=== PATIENT | male | born 1955 | race Caucasian/White ===

== ENCOUNTER 2017-06-19 10:42 | Emergency (ER) | payer BC, SELFPAY ==
[2017-06-19 11:02] VITALS: BP 142/93; PULSE 71; RESP 20; TEMP 36.9; O2SAT 98; BMI 19.6
--- NOTE | 2017-06-19 11:33 | HMH.EDUTC ---
[facility] [place] Clinical Impression: Encounter to obtain excuse from work Low back strain Qualifiers: Encounter type: initial encounter Qualified Code(s): S39.012A - Strain of muscle, fascia and tendon of lower back, initial encounter Fall due to ice or snow Qualifiers: Encounter type: initial encounter Qualified Code(s): W00.9XXA - Unspecified fall due to ice and snow, initial encounter Disposition: Home, Self-Care Condition on Discharge: Good Instructions: DI for Back Strain or Sprain Additional Instructions: * Ibuprofen every 6 hours with meal as needed for pain/inflammation. * No additional anti-inflammatories like motrin, aleve, advil with the above amount of ibuprofen. You CAN still take Tylenol every 4 hours as needed if you need something more for pain. * Ice x15-20 mins 3-4 times a day for first 48 hours after the initial injury followed by moist heat x15-20 mins 3-4 times a day to affected area * Keep this area active. No movement leads to more stiffness. However, take it easy too and avoid heavy lifting, pushing, pulling. If not ready to return to work on Monday, you need to follow up with primary care for further evaluation and extended work excuse. Referrals: Ivet Dill APRN [Nurse Practitioner] - (Immediately for new or worsening symptoms or no noticeable improvement over the next 3-4 days.) Forms: Work/School Release Time of Disposition: 11:41 Medical Decision Making Vital Signs: 06/19/17 11:02 06/19/17 11:43 Temperature 98.4 F 98.4 F Temperature Source Temporal Artery Scan Pulse Rate 71 Pulse Rate [Right Brachial] 71 Respiratory Rate 20 20 Blood Pressure 142/93 Blood Pressure [Right Arm] 142/93 Blood Pressure Mean [Right Arm] 109 Blood Pressure Source [Right Arm] Automatic Cuff Blood Pressure Position [Right Arm] Sitting 02 Sat by Pulse Oximetry 98 Oxygen Delivery Method Room Air - Prakash Inquiry Pt receiving controlled substance: No [facility] [place] - General Stated complaint: AO 06/19/17 fell hurt back Time Seen by Provider: 06/19/17 11:33 Mode of Arrival: Ambulatory Source of Information: Patient Limitations: No Limitations Description of Symptoms (Recalled from Triage Doc. by RN): c/o back pain after falling on ice this am HEENT Symptoms (Recalled from RN notes): No Resp Symptoms (Recalled from RN notes): No Skin Symptoms (Recalled from RN notes): No MS Symptoms (Recalled from RN notes): Yes (back pain) Functional Status (Recalled from RN notes): n/a - History of Present Illness Provider Complaint: c/o need for work excuse. Slid on ice this morning at home in driveway. Landed on buttock. Mild left sided low back pain. Hx of low back pain in the past. Thinks he just strained it again. I know with a few days of ice, rest, ibuprofen it will be fine . Denies pain or injury elsewhere. Declines xrays to rule out further injury. - Related Data Allergies Allergy/AdvReac Type Severity Reaction Status Date / Time Unable to Assess Allergy Verified 05/30/17 12:32 - Worker's Comp Is this a Worker's Comp case?: No [facility] History I have reviewed the patient's past medical history: Yes Medical History: Reports:: Anxiety Denies:: Cancer, Diabetes Mellitus Type 1, Diabetes Mellitus Type 2, Hypertension, MRSA Other Medical History: Reports: Hypothyroidism, Other (insomnia) Other Surgeries: Yes: Other (knee surgery) Amputation: No Fractures: No - *Social History Smoking Status: Current every day smoker Tobacco Type: cigarettes Alcohol Intake: never - Psychiatric History Expresses thoughts of harming self/others: None Suicide Plan Description: No Plan ROS Obtained: Yes Systems reviewed as appropriate & no additional complaints - Constitutional Constitutional: Denies weakness - Cardiovascular Cardiovascular: Denies chest pain - Respiratory Respiratory: No dyspnea - Gastrointestinal Gastrointestingal: Denies: abdominal pain, other (stool incontinence) -
--- NOTE | 2017-06-19 11:39 | ED_ITS ---
[facility] [place] Clinical Impression: Encounter to obtain excuse from work Low back strain Qualifiers: Encounter type: initial encounter Qualified Code(s): S39.012A - Strain of muscle, fascia and tendon of lower back, initial encounter Fall due to ice or snow Qualifiers: Encounter type: initial encounter Qualified Code(s): W00.9XXA - Unspecified fall due to ice and snow, initial encounter Disposition: Home, Self-Care Condition on Discharge: Good Instructions: DI for Back Strain or Sprain Additional Instructions: * Ibuprofen every 6 hours with meal as needed for pain/inflammation. * No additional anti-inflammatories like motrin, aleve, advil with the above amount of ibuprofen. You CAN still take Tylenol every 4 hours as needed if you need something more for pain. * Ice x15-20 mins 3-4 times a day for first 48 hours after the initial injury followed by moist heat x15-20 mins 3-4 times a day to affected area * Keep this area active. No movement leads to more stiffness. However, take it easy too and avoid heavy lifting, pushing, pulling. If not ready to return to work on Monday, you need to follow up with primary care for further evaluation and extended work excuse. Referrals: Ivet Dill APRN [Nurse Practitioner] - (Immediately for new or worsening symptoms or no noticeable improvement over the next 3-4 days.) Forms: Work/School Release Time of Disposition: 11:41 Medical Decision Making Vital Signs: 06/19/17 11:02 06/19/17 11:43 Temperature 98.4 F 98.4 F Temperature Source Temporal Artery Scan Pulse Rate 71 Pulse Rate [Right Brachial] 71 Respiratory Rate 20 20 Blood Pressure 142/93 Blood Pressure [Right Arm] 142/93 Blood Pressure Mean [Right Arm] 109 Blood Pressure Source [Right Arm] Automatic Cuff Blood Pressure Position [Right Arm] Sitting 02 Sat by Pulse Oximetry 98 Oxygen Delivery Method Room Air - Prakash Inquiry Pt receiving controlled substance: No [facility] [place] - General Stated complaint: AO 06/19/17 fell hurt back Time Seen by Provider: 06/19/17 11:33 Mode of Arrival: Ambulatory Source of Information: Patient Limitations: No Limitations Description of Symptoms (Recalled from Triage Doc. by RN): c/o back pain after falling on ice this am HEENT Symptoms (Recalled from RN notes): No Resp Symptoms (Recalled from RN notes): No Skin Symptoms (Recalled from RN notes): No MS Symptoms (Recalled from RN notes): Yes (back pain) Functional Status (Recalled from RN notes): n/a - History of Present Illness Provider Complaint: c/o need for work excuse. Slid on ice this morning at home in driveway. Landed on buttock. Mild left sided low back pain. Hx of low back pain in the past. Thinks he just strained it again. I know with a few days of ice, rest, ibuprofen it will be fine . Denies pain or injury elsewhere. Declines xrays to rule out further injury. - Related Data Allergies Allergy/AdvReac Type Severity Reaction Status Date / Time Unable to Assess Allergy Verified 05/30/17 12:32 - Worker's Comp Is this a Worker's Comp case?: No [facility] History I have reviewed the patient's past medical history: Yes Medical History: Reports:: Anxiety Denies:: Cancer, Diabetes Mellitus Type 1, Diabetes Mellitus Type 2, Hypertension, MRSA Other Medical History: Reports: Hypothyroidism, Other (insomnia) Other Surgeries: Yes: Other (knee surgery) Amputation: No Fractures: No
[2017-06-19 11:43] VITALS: BP 142/93; PULSE 71; RESP 20; TEMP 36.9; O2SAT 98
== END 2017-06-19 11:44 | disposition home or self-care (01) ==
PROVIDERS: Emergency Provider Nurse Practitioner Family; Family Provider Internal Medicine Adolescent Medicine; PCP Internal Medicine Adolescent Medicine
DX: S39.012A Strain of muscle, fascia and tendon of lower back, initial encounter (principal); W00.9XXA Unspecified fall due to ice and snow, initial encounter; F17.210 Nicotine dependence, cigarettes, uncomplicated; F41.9 Anxiety disorder, unspecified; E03.9 Hypothyroidism, unspecified; G47.00 Insomnia, unspecified
CPT/HCPCS: 99202

== ENCOUNTER → 2017-12-03 08:42 | Outpatient (CLI) | payer MEDICAID, SELFPAY ==
[2017-12-03 09:08] LABS: Basophils % 0.5 % (0.1-2.0); Eosinophils # 0.2 K/mm3 (0.0-0.4); Eosinophils % 2.9 % (0.1-12.0); Hematocrit 44.2 % (42.0-52.0); Hemoglobin 14.3 g/dL (14.1-18.0); Lymphocytes # 2.1 K/mm3 (0.7-4.5); Lymphocytes % 33.4 K/mm3 (10-50); Mean Corpuscular HGB Conc 32.4 g/dL (31.8-35.4); Mean Corpuscular Hemoglobin 31.2 pg (27.0-31.2); Mean Corpuscular Volume 96.2 fl (80-94); Mean Platelet Volume 8.4 fl (7.4-10.4); Monocytes # 0.6 K/mm3 (0.1-1.0); Monocytes % 8.8 % (1.7-9.3); Neutrophils # 3.5 K/mm3 (1.8-7.8); Neutrophils % 54.4 % (37.0-80.0); Platelet Count 235 K/mm3 (142-424); Red Cell Distribution Width 13.3 % (11.5-17.5); White Blood Count 6.4 K/mm3 (4.8-10.8)
[2017-12-03 12:19] LABS: Alanine Aminotransferase 23 U/L (12-78); Albumin Level 3.6 gm/dL (3.4-5.0); Albumin/Globulin Ratio 1.3 (1.1-1.8); Alkaline Phosphatase 82 U/L (46-116); Aspartate Amino Transferase 14 U/L (15-37); Bilirubin,Total 0.7 mg/dL (0.2-1.0); Blood Urea Nitrogen 10 mg/dL (7-18); Calcium 9.1 mg/dL (8.5-10.1); Carbon Dioxide 32 mmol/L (21.0-32.0); Chloride 109 mmol/L (98-107); Creatinine,Serum 1.13 mg/dL (0.70-1.30); Estimated Glomerular Filt Rate 66 ml/min (>60); Ferritin 99 ng/mL (8-388); Free T4 (Free Thyroxine) 1.29 ng/dl (0.76-1.46); GFR (African American) 80 ML/MIN (>60); Globulin 2.8 gm/dl (1.3-3.2); Glucose 91 mg/dL (74-106); Magnesium 2.1 mg/dL (1.4-2.2); Sodium 145 mmol/L (136-145); Thyroid Stimulating Hormone 1.46 uIU/ml (0.358-3.740); Total Protein,Serum 6.4 gm/dL (6.4-8.2)
[2017-12-06 16:48] LABS: Vitamin B12 <150 pg/mL (232-1245); Vitamin D 25 Hydroxy 28.2 ng/mL (30.0-100.0)
[2017-12-06 17:11] LABS: Antinuclear Antibodies, IFA Negative (.)
== END ==
PROVIDERS: PCP Family Medicine; Visit Provider Nurse Practitioner Family
DX: R53.83 Other fatigue (principal); E03.9 Hypothyroidism, unspecified; G44.52 New daily persistent headache (NDPH); M62.838 Other muscle spasm
CPT/HCPCS: 36415; 80053; 82607; 82652; 82728; 83735; 84439; 84443; 85025; 86038

== ENCOUNTER → 2019-03-07 14:21 | Outpatient (CLI) | payer OTHER, SELFPAY ==
--- NOTE | 2019-03-07 14:27 | XR_ITS ---
PROCEDURE: XR ANKLE RT MIN 3V CLINICAL INDICATION: RT ANKLE SWELLING Lateral ankle pain and swelling COMPARISON: No exams were available for comparison FINDINGS: Minimal soft tissue swelling laterally. No fracture dislocation or other significant anomaly IMPRESSION: Minimal lateral soft tissue swelling otherwise negative Dictated by: Marty Owens MD 03/07/2019 15:18 Electronically signed by Marty Owens MD in [place] 03/07/2019 15:18
== END ==
PROVIDERS: PCP Family Medicine; Visit Provider Nurse Practitioner Family
DX: M25.471 Effusion, right ankle (principal)
CPT/HCPCS: 73610

== ENCOUNTER → 2019-04-16 13:45 | Outpatient (CLI) | payer OTHER, SELFPAY ==
--- NOTE | 2019-04-16 13:53 | XR_ITS ---
PROCEDURE: XR FOOT WT BEARING LT 3V CLINICAL INDICATION: foot pain COMPARISON: No exams were available for comparison FINDINGS: No fracture or dislocation. No lytic or blastic change. There is normal mineralization. The joint spaces are well-preserved. No significant degenerative/arthritic changes. No erosive changes evident. Other findings:None. IMPRESSION: No acute findings. Dictated by: Pavel Ceja 04/16/2019 15:22 Electronically signed by Pavel Ceja in [place] 04/16/2019 15:22
--- NOTE | 2019-04-16 13:53 | XR_ITS ---
PROCEDURE: XR ANKLE WT BEARING RT MIN 3V CLINICAL INDICATION: foot pain COMPARISON: No exams were available for comparison FINDINGS: IMPRESSION: No acute findings. Dictated by: Pavel Ceja 04/16/2019 15:23 Electronically signed by Pavel Ceja in [place] 04/16/2019 15:23
--- NOTE | 2019-04-16 13:53 | XR_ITS ---
PROCEDURE: XR ANKLE WT BEARING LT MIN 3V CLINICAL INDICATION: foot pain COMPARISON: No exams were available for comparison FINDINGS: IMPRESSION: No acute findings. Dictated by: Pavel Ceja 04/16/2019 15:22 Electronically signed by Pavel Ceja in [place] 04/16/2019 15:22
--- NOTE | 2019-04-16 13:53 | XR_ITS ---
PROCEDURE: XR FOOT WT BEARING RT 3V CLINICAL INDICATION: foot pain COMPARISON: No exams were available for comparison FINDINGS: No fracture or dislocation. No lytic or blastic change. There is normal mineralization. The joint spaces are well-preserved. No significant degenerative/arthritic changes. No erosive changes evident. Other findings:None. IMPRESSION: No acute findings. Dictated by: Pavel Ceja 04/16/2019 15:20 Electronically signed by Pavel Ceja in [place] 04/16/2019 15:20
== END ==
PROVIDERS: PCP Family Medicine; Visit Provider Podiatrist
DX: M25.572 Pain in left ankle and joints of left foot (principal); M79.672 Pain in left foot; M25.571 Pain in right ankle and joints of right foot; M79.671 Pain in right foot
CPT/HCPCS: 73610; 73630

== ENCOUNTER → 2019-12-20 13:45 | Outpatient (CLI) | payer OTHER, SELFPAY ==
--- NOTE | 2019-12-20 13:53 | XR_ITS ---
PROCEDURE: XR SHOULDER RT MIN 2V CLINICAL INDICATION: RT SHOULDER PAIN COMPARISON: No exams were available for comparison FINDINGS: No fracture or dislocation. No lytic or blastic change. There is normal mineralization. The joint spaces are well-preserved. No significant degenerative/arthritic changes. No erosive changes evident. Other findings:None. IMPRESSION: No acute findings. Dictated by: Marty Owens MD 12/20/2019 14:17 Marty Owens MD in [place] 12/20/2019 14:17
--- NOTE | 2019-12-20 13:53 | XR_ITS ---
PROCEDURE: XR CERVICAL SPINE 5V CLINICAL INDICATION: CERVICALGIA COMPARISON: No exams were available for comparison FINDINGS: There is normal alignment. There is multilevel degenerative disc disease at C4-C5 C5-C6 and C6-C7. There is mild uncovertebral hypertrophy with mild narrowing of the foramen on the right at C3-C4 and C6-C7 and on the left at C3-C4 and C4-C5. There are mild facet arthritic changes of the lower cervical spine there is mild upper cervical curvature convex right. No fracture or dislocation. No lytic or blastic change. IMPRESSION: Cervical spondylosis as described above. Dictated by: Marty Owens MD 12/20/2019 14:16 Marty Owens MD in [place] 12/20/2019 14:16
--- NOTE | 2019-12-20 13:53 | XR_ITS ---
PROCEDURE: XR SHOULDER LT MIN 2V CLINICAL INDICATION: LT SHOULDER PAIN COMPARISON: No exams were available for comparison FINDINGS: No fracture or dislocation. No lytic or blastic change. There is normal mineralization. The joint spaces are well-preserved. No significant degenerative/arthritic changes. No erosive changes evident. Other findings:None. IMPRESSION: No acute findings. Dictated by: Marty Owens MD 12/20/2019 14:17 Marty Owens MD in [place] 12/20/2019 14:17
== END ==
PROVIDERS: PCP Nurse Practitioner Family; Visit Provider Nurse Practitioner Family
DX: M54.2 Cervicalgia (principal); M25.512 Pain in left shoulder; M25.511 Pain in right shoulder
CPT/HCPCS: 72050; 73030

== ENCOUNTER → 2022-01-27 14:30 | Outpatient (CLI) | payer MEDICARE, SELFPAY ==
--- NOTE | 2022-01-27 14:41 | XR_ITS ---
FINAL REPORT CLINICAL HISTORY: RT KNEE PAIN, hx of torn meniscus with arthroscopic sx around 10years ago, no recent sx FINDINGS: Right knee Three views were obtained. There is no acute fracture or dislocation. No joint effusion is identified. The joint spaces appear normal. No soft tissue abnormality is identified. IMPRESSION: No acute process. Reviewed, Interpreted and Dictated by Stew Marrufo MD Transcribed by Maryam Mahoney Authenticated and [facility]
== END ==
PROVIDERS: PCP Nurse Practitioner Family; Visit Provider Nurse Practitioner Family
DX: M25.561 Pain in right knee (principal)
CPT/HCPCS: 73562

== ENCOUNTER 2022-02-10 19:02 | Emergency (ER) | payer MEDICARE, OTHER, SELFPAY ==
[2022-02-10] VITALS (7 sets, daily range): BP systolic 146–176; BP diastolic 80–89; PULSE 55–81; RESP 16–18; TEMP 36.6–36.8; O2SAT 95–100
--- NOTE | 2022-02-10 19:25 | HMH.EDGENADL ---
Discharge Plan Disposition Patient Disposition: Home, Self-Care Condition: Good Prescriptions Prescriptions: No Action levothyroxine 88 mcg tablet 88 mcg PO DAILY Qty: 30 trazodone 150 mg tablet 150 mg PO DAILY Qty: 30 sertraline 50 mg tablet 50 mg PO DAILY Referrals Follow up/Referrals: Carina Acuna MD [Primary Care Provider] - See instructions Activity Restrictions/Add. Instructions Additional Instructions/Restrictions: Please continue to monitor your symptoms at home. Use Tylenol Motrin for pain. Follow-up with your primary care physician or return to the emergency department for reassessment should your condition worsen. Clinical Impressions Clinical Impression: Fall, Acute pain of right shoulder, Abdominal pain Instructions Patient Instructions: Sprain, Trauma Discharge ED Provider: Hadley Baker General Adult HPI <Hadley Baker MD - Last Filed: 02/10/22 19:31> General Chief complaint: Extremity Injury, Upper Stated complaint: [id number]@[email or web address] horse step on r aRM,LEFT STOMACH Time Seen by Provider: 02/10/22 19:15 Mode of Arrival: Ambulatory Source of Information: Patient Limitations: No Limitations Description of Symptoms (Recalled from ER Triage Doc. by RN): Patient states that at 1630 today he was walking his 2 year old fillie from one field to the next when the horse panicked and knocked him down. Patient states that the horse ran over top of him. Patient states that he doesnt remember if the horse stepped on his abdomen or chest but since the event his left lower quadrant has been very tender with palpation or coughing. While resting the pain is a 2/10. Patient also states that the horse stepped on his right arm causing a laceration and severe pain. Pt reports difficulty moving the extremity and tingling in his right fingers. History of Present Illness HPI narrative: Patient states that he was walking 2-year-old horse when the horse panicked and knocked him down. He says the horse ran over him a couple of times and rolled him or dragged him but he does not think the horse stepped on him, but he says he cannot be sure. His main complaint is pain and injury to his right forearm. He has a large abrasion on the extensor surface of his forearm. He says he did not suffer any head or neck injury. His right upper extremity is also sore in the shoulder and at his elbow. Right hand fingers feel tingly. He has a sensation of soreness or muscle strain across his right anterior chest. He has an area of his left lower quadrant of his abdomen that is painful and hurts severely when he coughs. He is able to ambulate. He says he thinks he has a small bruise on his right nelson but it does not hurt and he is able to ambulate without difficulty. Related Data Home Medications Medication Instructions Recorded Confirmed levothyroxine 88 mcg tablet 88 mcg PO DAILY hypothyroidism #30 04/16/19 02/10/22 tabs trazodone 150 mg tablet 150 mg PO DAILY Insomnia #30 tabs 04/16/19 02/10/22 sertraline 50 mg tablet 50 mg PO DAILY Anxiety 02/10/22 02/10/22 Allergies Allergy/AdvReac Type Severity Reaction Status Date / Time No Known Drug Allergies Allergy Unknown Verified 05/06/19 13:02 [facility] <Hadley Baker MD - Last Filed: 02/10/22 19:31> [facility] Medical History (Updated 02/10/22 @ 22:49 by Breanna Denney MD) Hypothyroid Insomnia Seasonal allergies Surgical History (Updated 02/10/22 @ 19:30 by Gina Zazueta RN) History of tonsillectomy and adenoidectomy Social History Smoking Status: Never smoker alcohol intake: never substance use type: denies use current occupational status: retired Travel in the last 8 weeks: None housing: house <Hadley Baker MD - Last Filed: 02/10/22 19:31> ROS Obtained: Yes Systems reviewed as appropriate & no additional complaints except as documented Constitutional Constitutional: Denies headache(s) Eyes Eyes: Denies change in vision an
--- NOTE | 2022-02-10 19:32 | XR_ITS ---
PROCEDURE INFORMATION: Exam: XR Pelvis Exam date and time: 02/10/2022 8:44 PM Age: 66 years old Clinical indication: Injury or trauma; Other: Ran over by horse; Blunt trauma (contusions or hematomas); Bilateral; Pelvic region TECHNIQUE: Imaging protocol: Radiologic exam of the pelvis. Views: 1 or 2 view. COMPARISON: CT ABDOMEN PELVIS W CON 02/10/2022 8:13 PM FINDINGS: Bones/joints: No acute fracture or dislocation. Soft tissues: Unremarkable. Organs: Contrast in the urinary bladder. IMPRESSION: No acute fracture or dislocation.
--- NOTE | 2022-02-10 19:32 | XR_ITS ---
PROCEDURE INFORMATION: Exam: XR Chest Exam date and time: 02/10/2022 8:44 PM Age: 66 years old Clinical indication: Injury or trauma; Other: Ran over by horse; Blunt trauma (contusions or hematomas) TECHNIQUE: Imaging protocol: Radiologic exam of the chest. Views: 2 views. COMPARISON: CT ABDOMEN PELVIS W CON 02/10/2022 8:13 PM FINDINGS: Lungs: Stigmata of old granulomatous disease. Pleural spaces: Unremarkable. No pleural effusion. No pneumothorax. Heart/Mediastinum: Unremarkable. No cardiomegaly. Vasculature: Vascular calcifications. Bones/joints: Unremarkable. Other findings: Widespread reticular opacities suggest chronic scarring. IMPRESSION: No acute intrathoracic organ injury.
--- NOTE | 2022-02-10 19:32 | CT_ITS ---
PROCEDURE INFORMATION: Exam: CT Abdomen And Pelvis With Contrast Exam date and time: 02/10/2022 8:13 PM Age: 66 years old Clinical indication: Injury or trauma; Other: Ran over by horse; Blunt; Generalized; Patient HX: Ran over by horse, lower abdominal pain. TECHNIQUE: Imaging protocol: Computed tomography of the abdomen and pelvis with contrast. Radiation optimization: All CT scans at this facility use at least one of these dose optimization techniques: automated exposure control; mA and/or kV adjustment per patient size (includes targeted exams where dose is matched to clinical indication); or iterative reconstruction. Contrast material: ISOVUE; Contrast volume: 75 ml; Contrast route: IV; COMPARISON: CR [id number] HIP LT 2-3V W/PELVIS IF PERFOR 05/13/2015 10:54 AM FINDINGS: Lungs: Multiple pulmonary nodules in the lower lungs measuring up to 8 mm. The largest is 8 mm in the left lung base on image 14 series 3. Liver: Normal. No mass. Gallbladder and bile ducts: Normal. No calcified stones. No ductal dilation. Pancreas: Normal. No ductal dilation. Spleen: Normal. No splenomegaly. Adrenal glands: Normal. No mass. Kidneys and ureters: Low attenuation renal lesions measuring up to 2.8 cm in diameter are incompletely characterized, but are likely cysts. No followup imaging is warranted. Stomach and bowel: Unremarkable. No obstruction. No mucosal thickening. Appendix: Unremarkable appendix. Intraperitoneal space: Unremarkable. No free air. No significant fluid collection. 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 The arteries demonstrate moderate atherosclerotic disease. Lymph nodes: Unremarkable. No enlarged lymph nodes. Urinary bladder: Unremarkable as visualized. Reproductive: Left hydrocele. Atil-zh-kvbkjgor prostate enlargement. Bones/joints: Mild sclerotic appearance of the left iliac bone on image 52 series 3 is of doubtful clinical significance. The lumbar spine demonstrates mild degenerative changes at multiple levels. Soft tissues: Unremarkable. Other findings: Stigmata of old granulomatous disease. IMPRESSION: 1. No acute intra-abdominal or intrapelvic organ injury. 2. 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 3. Pulmonary nodules measuring up to 8 mm. For patients at low risk (minimal or absent history of smoking and of other known risk factors), recommend CT Chest at 3-6 months, then consider CT Chest at 18-24 months. For patients at high risk (history of smoking or of other known risk factors), recommend CT Chest at 3-6 months, then CT Chest at 18-24 months. (Reference: Jayden) COMMENTS: Consistent with the [employer]'s Incidental Findings Committee white paper (J Am Erika Radiol 2018): Any incidental renal lesion less than 1 cm or classified as too small to characterize, or any incidental cystic renal lesion characterized as simple-appearing, is likely benign. No follow-up imaging is recommended for these lesions per consensus recommendations based on imaging criteria. REFERENCES: Jayden Castano, et al. Guidelines for Management of Incidental Pulmonary Nodules Detected on CT Images: From the Fleischner Society 2017. Radiology. 2017;284(1):228-243.
--- NOTE | 2022-02-10 19:32 | XR_ITS ---
PROCEDURE INFORMATION: Exam: XR Right Forearm Exam date and time: 02/10/2022 8:44 PM Age: 66 years old Clinical indication: Injury or trauma; Other: Ran over by horse; Laceration; Arm, lower; Right TECHNIQUE: Imaging protocol: Radiologic exam of the Right forearm. Views: 2 views. COMPARISON: No relevant prior studies available. FINDINGS: Bones/joints: No acute fracture or dislocation. Soft tissues: Normal. IMPRESSION: No acute fracture or dislocation.
--- NOTE | 2022-02-10 19:35 | XR_ITS ---
PROCEDURE INFORMATION: Exam: XR Right Humerus Exam date and time: 02/10/2022 8:44 PM Age: 66 years old Clinical indication: Injury or trauma; Other: Ran over by horse; Blunt trauma (contusions or hematomas); Arm, upper; Right TECHNIQUE: Imaging protocol: Radiologic exam of the Right humerus. Views: 2 or more views. COMPARISON: CR XR SHOULDER RT MIN 2V 12/20/2019 1:58 PM FINDINGS: Bones/joints: No acute fracture or dislocation. Soft tissues: Normal. IMPRESSION: No acute fracture or dislocation.
--- NOTE | 2022-02-10 19:35 | XR_ITS ---
PROCEDURE INFORMATION: Exam: XR Right Shoulder Exam date and time: 02/10/2022 8:44 PM Age: 66 years old Clinical indication: Injury or trauma; Other: Ran over by horse; Blunt trauma (contusions or hematomas); Shoulder; Right TECHNIQUE: Imaging protocol: Radiologic exam of the Right shoulder. Views: 2 or more views. COMPARISON: CR XR SHOULDER RT MIN 2V 12/20/2019 1:58 PM FINDINGS: Bones/joints: No acute fracture or dislocation. Soft tissues: Normal. IMPRESSION: No acute fracture or dislocation.
--- NOTE | 2022-02-10 19:35 | XR_ITS ---
PROCEDURE INFORMATION: Exam: XR Right Elbow Exam date and time: 02/10/2022 8:44 PM Age: 66 years old Clinical indication: Injury or trauma; Other: Ran over by horse; Blunt trauma (contusions or hematomas); Elbow; Right TECHNIQUE: Imaging protocol: Radiologic exam of the Right elbow. Views: 3 or more views. COMPARISON: CR XR SHOULDER RT MIN 2V 12/20/2019 1:58 PM FINDINGS: Bones/joints: Calcifications around the distal humeral medial epicondyle may represent chronic injury. No acute fracture or dislocation. Soft tissues: Normal. IMPRESSION: No acute fracture or dislocation.
[2022-02-10 19:53] LABS: Basophils # 0.1 K/mm3 (0-0.2); Eosinophils # 0.2 K/mm3 (0.0-0.4); Eosinophils % 1.9 % (0.1-12.0); Hematocrit 40.6 % (42.0-52.0); Hemoglobin 13.6 g/dL (14.1-18.0); Lymphocytes # 1.8 K/mm3 (0.7-4.5); Lymphocytes % 16.7 % (10-50); Mean Corpuscular HGB Conc 33.4 g/dL (31.8-35.4); Mean Corpuscular Hemoglobin 32.4 pg (27.0-31.2); Mean Corpuscular Volume 97.3 fl (80-94); Mean Platelet Volume 9.3 fl (7.4-10.4); Monocytes # 0.7 K/mm3 (0.1-1.0); Monocytes % 6.9 % (1.7-9.3); Neutrophils # 7.7 K/mm3 (1.8-7.8); Neutrophils % 73.6 % (37.0-80.0); Platelet Count 275 K/mm3 (142-424); Red Blood Count 4.18 M/mm3 (4.60-6.20); Red Cell Distribution Width 13.5 % (11.5-17.5); White Blood Count 10.5 K/mm3 (4.8-10.8)
[2022-02-10 20:03] LABS: Alanine Aminotransferase 18 U/L (12-78); Albumin Level 3.7 g/dl (3.5-5.0); Albumin/Globulin Ratio 1.7 (1.1-1.8); Alkaline Phosphatase 89 U/L (38-126); Aspartate Amino Transferase 32 U/L (17-59); Bilirubin,Total 0.2 mg/dl (0.2-1.3); Blood Urea Nitrogen 18 mg/dl (9-20); Calcium 8.4 mg/dl (8.4-10.2); Carbon Dioxide 30 mmol/L (22.0-30.0); Chloride 105 mmol/L (98-107); Creatinine Clearance Estimated 64 mL/min (50-200); Estimated Glomerular Filt Rate 67 ml/min (>60); GFR (African American) 81 ML/MIN (>60); Globulin 2.2 g/dL (1.3-3.2); Glucose 96 mg/dl (74-100); Sodium 140 mmol/L (136-145); Total Protein,Serum 5.9 g/dl (6.3-8.2)
[2022-02-10 20:44] LABS: Anion Gap 8.3 mEq/L (5-15); Potassium 3.3 mmoL/L (3.5-5.1)
--- NOTE | 2022-02-10 20:57 | PC.NURSE ---
Rechecked pt condition. No needs or complaints voiced at this time.
--- NOTE | 2022-02-10 21:15 | PC.NURSE ---
Pt ambulatory to bathroom
--- NOTE | 2022-02-10 22:36 | PC.NURSE ---
Rechecked pt condition. Pt stated, If nothing is broke we are ready to go. I told pt/family that I understood and would Dr. Minor know. After notifying Dr. Minor I spoke with the pt/family again and Pt advised, If nothing is done in 10-15 minutes we're leaving. I let them know that the MD would be in as soon as possible.
== END 2022-02-10 22:52 | disposition home or self-care (01) ==
PROVIDERS: Emergency Provider Emergency Medicine; PCP Family Medicine
DX: M25.511 Pain in right shoulder (principal); R10.9 Unspecified abdominal pain; W55.19XA Other contact with horse, initial encounter; Y92.73 Farm field as the place of occurrence of the external cause; Z79.899 Other long term (current) drug therapy; E03.9 Hypothyroidism, unspecified; G47.00 Insomnia, unspecified; F41.9 Anxiety disorder, unspecified; Z23 Encounter for immunization
CPT/HCPCS: 71046; 72170; 73030; 73060; 73080; 73090; 74177; 80053; 85025; 90471; 90714; 99285; Q9967

== ENCOUNTER → 2022-04-21 14:02 | Outpatient (CLI) | payer MEDICARE, OTHER, SELFPAY ==
--- NOTE | 2022-04-21 14:11 | XR_ITS ---
FINAL REPORT CLINICAL HISTORY: SOB,WEIGHT LOSS,COUGH COMPARISON: 02/10/2022 FINDINGS: Two views of the chest were obtained. The heart size and pulmonary vascularity are within normal limits. The mediastinum is normal. No acute pulmonary abnormality is identified. There is mild pulmonary scarring. There is no pneumothorax. The bony thorax is intact. IMPRESSION: No active cardiopulmonary disease. Reviewed, Interpreted and Dictated by Darrel Day III, MD Transcribed by Jackie Lopez Authenticated and [facility]
[2022-04-21 14:57] LABS: Basophils # 0.1 K/mm3 (0-0.2); Basophils % 0.6 % (0.1-2.0); Eosinophils # 0.2 K/mm3 (0.0-0.4); Eosinophils % 2.6 % (0.1-12.0); Hematocrit 42.8 % (42.0-52.0); Lymphocytes # 1.9 K/mm3 (0.7-4.5); Lymphocytes % 25.5 % (10-50); Mean Corpuscular HGB Conc 32.7 g/dL (31.8-35.4); Mean Corpuscular Hemoglobin 30.7 pg (27.0-31.2); Mean Corpuscular Volume 93.9 fl (80-94); Mean Platelet Volume 9.2 fl (7.4-10.4); Monocytes # 0.6 K/mm3 (0.1-1.0); Monocytes % 7.4 % (1.7-9.3); Neutrophils # 4.7 K/mm3 (1.8-7.8); Neutrophils % 63.8 % (37.0-80.0); Platelet Count 294 K/mm3 (142-424); Red Blood Count 4.56 M/mm3 (4.60-6.20); Red Cell Distribution Width 13.4 % (11.5-17.5); White Blood Count 7.4 K/mm3 (4.8-10.8)
[2022-04-21 15:04] LABS: D-Dimer 0.79 ug/mL (0.0-0.5)
[2022-04-21 15:17] LABS: Alanine Aminotransferase 17 U/L (12-78); Albumin Level 4.3 g/dl (3.5-5.0); Albumin/Globulin Ratio 1.8 (1.1-1.8); Alkaline Phosphatase 119 U/L (38-126); Anion Gap 9.5 mEq/L (5-15); Aspartate Amino Transferase 27 U/L (17-59); Bilirubin,Total 0.3 mg/dl (0.2-1.3); Blood Urea Nitrogen 10 mg/dl (9-20); Calcium 9.8 mg/dl (8.4-10.2); Carbon Dioxide 30 mmol/L (22.0-30.0); Chloride 106 mmol/L (98-107); Estimated Glomerular Filt Rate 75 ml/min (>60); GFR (African American) 91 ML/MIN (>60); Globulin 2.4 g/dL (1.3-3.2); Glucose 112 mg/dl (74-100); Potassium 3.5 mmoL/L (3.5-5.1); Sodium 142 mmol/L (136-145); Total Protein,Serum 6.7 g/dl (6.3-8.2)
[2022-04-21 15:46] LABS: Thyroid Stimulating Hormone 0.63 uIU/mL (0.465-4.68)
== END ==
PROVIDERS: PCP Nurse Practitioner Family; Visit Provider Nurse Practitioner Family
DX: R06.02 Shortness of breath (principal); R05.1 Acute cough; R63.4 Abnormal weight loss
CPT/HCPCS: 36415; 71046; 80053; 84443; 85025; 85378

== ENCOUNTER → 2022-04-22 13:42 | Outpatient (CLI) | payer MEDICARE, OTHER, SELFPAY ==
--- NOTE | 2022-04-22 13:49 | CT_ITS ---
FINAL REPORT TECHNIQUE: Postcontrast axial images of the chest were performed in a CTA protocol. This study was performed with techniques to keep radiation doses as low as reasonably achievable, (ALARA). Individualized dose reduction technique using automated exposure control or adjustment of mA and/or kV according to the patient's size were employed. CLINICAL HISTORY: SOB,ELEBATD D-DIMER FINDINGS: The heart is normal in size. No adenopathy is identified. No pleural or pericardial effusion is identified. The thoracic aorta is normal in caliber with no focal aneurysm or dissection identified. There is no filling defect to suggest pulmonary embolism. There is bilateral pulmonary scarring. There are multiple, small nodular opacities measuring less than 1 cm which are nonspecific, favor infectious or inflammatory. Limited imaging of the upper abdomen demonstrates a 20 mm left upper pole renal mass, favor cyst. IMPRESSION: No evidence for PE on this exam. Multiple small nodular opacities measuring less than 1 cm, nonspecific, favor infectious or inflammatory. Consider follow-up CT in 6 months. 22 mm left renal mass, favor cyst. Reviewed, Interpreted and Dictated by Darrel Day III, MD Transcribed by Kristina Dumont Authenticated and [facility]
== END ==
PROVIDERS: PCP Nurse Practitioner Family; Visit Provider Nurse Practitioner Family
DX: R06.02 Shortness of breath (principal); R79.89 Other specified abnormal findings of blood chemistry
CPT/HCPCS: 71275; Q9967

== ENCOUNTER → 2022-05-13 13:17 | Outpatient (CLI) | payer MEDICARE, OTHER, SELFPAY ==
[2022-05-13 15:11] LABS: Blood Urea Nitrogen 13 mg/dl (9-20); Estimated Glomerular Filt Rate 75 ml/min (>60); GFR (African American) 91 ML/MIN (>60)
== END ==
PROVIDERS: PCP Nurse Practitioner Family; Visit Provider Nurse Practitioner Family
DX: Z01.812 Encounter for preprocedural laboratory examination (principal)
CPT/HCPCS: 36415; 82565; 84520

== ENCOUNTER → 2022-05-16 10:13 | Outpatient (CLI) | payer MEDICARE, OTHER, SELFPAY ==
--- NOTE | 2022-05-16 10:17 | CT_ITS ---
FINAL REPORT TECHNIQUE: After the administration of intravenous contrast, axial images were obtained through the abdomen and pelvis by computed tomography. This study was performed with technique to keep radiation doses as low as reasonably achievable, (ALARA). Individualized dose reduction techniques using automated exposure control or adjustment of the MA and/or KV according to the patient's size were employed. CLINICAL HISTORY: LEFT RENAL MASS SEEN ON MRI COMPARISON: 02/10/2022 FINDINGS: Abdomen: The lung bases demonstrate improvement of previously seen pulmonary nodules. There is a stable nodule the anterior left lung base measuring 5 mm. There is mild right base atelectasis or scarring. The liver is normal in size and attenuation. The spleen is unremarkable. The adrenals are normal. The pancreas is unremarkable. Again seen is a mass in the medial left kidney measuring 27 mm which is unchanged from prior exam and consistent with cyst. The aorta is normal in caliber. There is no free fluid or adenopathy. Pelvis: The appendix is normal. The urinary bladder is unremarkable. There is no free fluid or adenopathy. There is stable sclerosis of the iliac bone which is nonspecific. Occlusion of the proximal, bilateral superficial femoral arteries is unchanged. IMPRESSION: Stable mass in the medial left kidney consistent with a cyst. Improved pulmonary nodules, and stable 5 mm nodule at the left lung base. Reviewed, Interpreted and Dictated by Darrel Day III, MD Transcribed by Kirstina Dumont Authenticated and [facility]
== END ==
PROVIDERS: PCP Nurse Practitioner Family; Visit Provider Nurse Practitioner Family
DX: N28.89 Other specified disorders of kidney and ureter (principal)
CPT/HCPCS: 74177; Q9967

== ENCOUNTER → 2022-08-12 09:45 | Outpatient (CLI) | payer MEDICARE, OTHER, SELFPAY | LOC: RT 09:46 | PROVIDERS: PCP Nurse Practitioner Family; Visit Provider Internal Medicine Pulmonary Disease | DX: R06.09 Other forms of dyspnea (principal) | CPT/HCPCS: 94060; 94618; 94726; 94729 ==

== ENCOUNTER 2022-08-15 09:09 | Day surgery (SDC) | payer MEDICARE, OTHER, SELFPAY ==
[2022-08-10 09:58] VITALS: BMI 19.0
[2022-08-15] VITALS (10 sets, daily range): BP systolic 100–178; BP diastolic 49–93; PULSE 57–78; RESP 12–20; TEMP 36.1–43; O2SAT 96–100
--- NOTE | 2022-08-15 10:18 | EXP.ANES.CKL ---
[facility] Disclaimer: The information contained in this section may have been updated after the patient was seen, as this information can be updated by other users. Medical History Dyspnea on exertion Hypothyroid Insomnia Multiple pulmonary nodules Pulmonary emphysema Seasonal allergies Smoking greater than 30 pack years Surgical History History of arthroscopic knee surgery History of tonsillectomy and adenoidectomy History of tooth extraction Family History Other Heart disease Hypertension Social History Smoking Status: Current every day smoker tobacco type: cigarettes alcohol intake: never substance use type: denies use current occupational status: retired Travel in the last 8 weeks: None housing: house [facility] Anesthesia Checklist Patient Identification Patient Identification: Arm Band and Verbal (Name & ) Structural Data Admitted From: Home Planned Operative Procedure/s: Bronchoscopy Consent for Planned Operative Procedure(s) Verified: Yes NPO Status Verified Time NPO: 00:00 Additional verifications Anesthesia Reactions: No Hx Blood Transfusions: No Blood Transfusion Reaction: No Airway Assessment C-Spine Mobility Assessed: Yes TMJ Mobility Assessed: Yes Dentition: Dentures-good fit Neurological Assessment Level of Consciousness: Awake Hx Seizures: No Numbness or tingling in extremities: No Anesthesia Plan Anesthesia Risk discussed: Yes Anesthesia Plan: Verified ASA Class: III Anesthesia Type: General
--- NOTE | 2022-08-15 12:05 | XR_ITS ---
FINAL REPORT CLINICAL HISTORY: BRONCHOSCOPY, fluoro time 95 seconds FINDINGS: A single fluoroscopic spot image was obtained for bronchoscopy. 95 seconds of fluoroscopy time is reported. IMPRESSION: 95 seconds of fluoroscopy. Reviewed, Interpreted and Dictated by Darrel Day III, MD Transcribed by Kristina Dumont Authenticated and . [facility]
--- NOTE | 2022-08-15 12:06 | P.PNANES_ITS ---
[facility] Anesthesia Record Part I Anesthesia Record I Intake, IV Amount: 800 Estimated blood loss (mL): 0 Urine output (mL): 0 Blood Products used (#): none Blood Pressure: 178/74 SaO2: 99 Pulse Rate: 78 Respiratory Rate: 16 Temperature: 97 F Patient is:: Drowsy and Stable Stable to PACU at:: 12:05
--- NOTE | 2022-08-15 12:12 | XR_ITS ---
FINAL REPORT TECHNIQUE: Single view chest CLINICAL HISTORY: Post Bronchoscopy COMPARISON: Exam performed earlier today FINDINGS: A single view of the chest was obtained. The heart and mediastinum are within normal limits. There is worsening right upper lobe opacity and right suprahilar opacity which may be infectious or neoplastic. There is no pneumothorax. Osseous structures are unremarkable. IMPRESSION: Worsening right upper lobe opacity and right suprahilar opacity which may be infectious or neoplastic. No pneumothorax. Reviewed, Interpreted and Dictated by Darrel Day III, MD Transcribed by Kristina Dumont Authenticated and [facility]
--- NOTE | 2022-08-15 12:43 | P.PCN_ITS ---
Procedure: Date: 08/15/22 Patient Date of :: 1955 Procedure Performed:: Bronchoscopy airway examination, bronchoalveolar lavage and transbronchial lung biopsy Indications:: Atypical pneumonia, lung nodules Performing Provider:: Sebastian Horne MD Referring Provider:: Dr:Pauline Monae APRN Sedation:: General anesthesia Procedure:: Bronchoscopy airway examination, bronchoalveolar lavage and transbronchial lung biopsy: A clean THEREPEAUTIC bronchoscopy was advanced through the ET tube and airways were examined up to subsegmental bronchi. Airways appeared grossly normal, no e vidence of mucoid secretions, mucous plugging active bleeding/old blood clots noted. Bronchoalveolar lavage was performed in the RIGHT UPPER LOBE with instillation of 60 cc normal saline with return of 30 cc back. BAL fluid was sent for cell count and differential along with bacterial fungal and AFB stain and cultures. Transbronchial biopsy was performed in the RIGHT UPPER LOBE with a total of 7 biopsies performed, 5 biopsy specimens were sent in formalin for cytopathologic examination. The other 2 biopsy samples, were sent one each in two separate normal saline specimen cups for bacterial fungal and AFB stain cultures. Special request was also made for the pathologist to evaluate for AFB and fungal organisms on the cytopathologic examination. Patient tolerated the procedure with no immediate acute complications. We will follow the patient in pulmonary clinic in 7 to 10 days. Findings:: Please see the procedure note Recommendations:: Postoperative bronchoscopy instructions. Follow in pulmonary clinic in 5 to 7 days Complications:: No acute immediate complications. Estimated blood obtained (mL): 5
--- NOTE | 2022-08-15 12:43 | EXP.ANES.II ---
[facility] Anesthesia Record Part II Anesthesia Record Part II Discharge Time: 12:25 Destination: Surgical Day Care (OP Surgery) PACU nurse assessment reviewed?: Yes Patient Condition:: Good Anesthesia Complications:: None Swallowing reflex intact?: Yes Cyanosis?: No Blood Pressure: 166/90 Pulse Rate: 60 Temperature: 97.8 F Mental Status: Alert & Oriented Pain level:: 0 Nausea and/or vomitting:: None Intake, IV Amount: 0
== END 2022-08-15 13:00 | disposition home or self-care (01) ==
PROVIDERS: PCP Nurse Practitioner Family; Visit Provider Internal Medicine Pulmonary Disease
PROC: (CPT 31624; principal; 2022-08-15 11:00)
DX: R06.09 Other forms of dyspnea (principal); J43.9 Emphysema, unspecified; F17.210 Nicotine dependence, cigarettes, uncomplicated; E03.9 Hypothyroidism, unspecified; Z79.899 Other long term (current) drug therapy
CPT/HCPCS: 31624; 31628; 71045; 87070; 87077; 87102; 87116; 87186; 87205; 87206; 88305; 88312; 89051; J2405

== ENCOUNTER → 2022-11-03 15:08 | Outpatient (CLI) | payer MEDICARE, OTHER, SELFPAY ==
--- NOTE | 2022-11-03 15:08 | CT_ITS ---
FINAL REPORT TECHNIQUE: Axial images were obtained from the lung apex to the mid abdomen by computed tomography. Coronal reformatted images were obtained. This study was performed with techniques to keep radiation doses as low as reasonably achievable, (ALARA). Individualized dose reduction techniques using automated exposure control or adjustment of mA and/or kV according to the patient''s size were employed. CLINICAL HISTORY: 6-month follow-up COMPARISON: 04/22/2022 FINDINGS: There is no axillary adenopathy. There are small mediastinal lymph nodes which appears stable. Heart size is normal. There is no pericardial or pleural effusion. There are multiple small pulmonary nodules which are mostly stable. A 7 mm nodule in the left upper lobe previously measured 4 mm. This is well seen on axial image 44. Limited images of the upper abdomen are unremarkable. IMPRESSION: Multiple small pulmonary nodules, most of which are stable and likely infectious/inflammatory. 7 mm left upper lobe nodule previously measured 4 mm. This also may be infectious/inflammatory but neoplastic involvement is not excluded. Follow-up CT in 3 months is recommended. Reviewed, Interpreted and Dictated by Darrel Day III, MD Transcribed by Na Hall Authenticated and . [facility]
== END ==
PROVIDERS: PCP Nurse Practitioner Family; Visit Provider Internal Medicine Pulmonary Disease
DX: R91.8 Other nonspecific abnormal finding of lung field (principal)
CPT/HCPCS: 71250

== ENCOUNTER → 2022-11-09 11:50 | Outpatient (CLI) | payer MEDICARE, OTHER, SELFPAY ==
[2022-11-11 14:28] LABS: Fungitell(Beta D-Glucan) Serum <31 pg/mL (<80)
[2022-11-12 16:14] LABS: Aspergillus flavus Negative (Neg:<1:1); Aspergillus fumigatus Negative (Neg:<1:1); Aspergillus niger Negative (Neg:<1:1); Blastomyces Antibody Negative (Neg:<1:1)
== END ==
PROVIDERS: PCP Nurse Practitioner Family; Visit Provider Internal Medicine Pulmonary Disease
DX: B44.9 Aspergillosis, unspecified (principal); J84.10 Pulmonary fibrosis, unspecified
CPT/HCPCS: 36415; 86606; 86612; 87449

== ENCOUNTER → 2022-12-19 13:14 | Outpatient (CLI) | payer MEDICARE, OTHER, SELFPAY ==
--- NOTE | 2022-12-19 13:55 | MR_ITS ---
FINAL REPORT CLINICAL HISTORY: INJURY OF LEFT KNEE, INITIAL ENCOUNTER, FOOT DROP LEFT. KICKED BY HORSE AND LATERAK SIDED KNEE PAIN. FINDINGS: Multiplanar MR imaging of the right knee was performed without contrast. There is a tear of the posterior horn of the medial meniscus. The lateral meniscus is intact. The anterior and posterior cruciate ligaments are intact. The medial collateral ligament and lateral ligamentous complex are intact. The patellar and quadriceps tendons are intact. There is a nondisplaced fracture of the lateral aspect of the lateral femoral condyle with surrounding bone marrow edema. No focal abnormality is identified of the articular cartilage. A small joint effusion is seen. The musculature is intact. There is a small popliteal cyst. IMPRESSION: Tear of the posterior horn of the medial meniscus. Nondisplaced fracture of the lateral aspect of the lateral femoral condyle with associated bone marrow edema. Small joint effusion and small popliteal cyst. Reviewed, Interpreted and Dictated by Darrel Day III, MD Transcribed by Kristina Dumont Authenticated and . [facility]
== END ==
PROVIDERS: PCP Nurse Practitioner Family; Visit Provider Nurse Practitioner Family
DX: M25.562 Pain in left knee (principal); S89.92XA Unspecified injury of left lower leg, initial encounter; S84.12XA Injury of peroneal nerve at lower leg level, left leg, initial encounter; M21.372 Foot drop, left foot
CPT/HCPCS: 73721

== ENCOUNTER → 2022-12-27 12:06 | Outpatient (CLI) | payer MEDICARE, OTHER, SELFPAY ==
--- NOTE | 2022-12-27 12:11 | XR_ITS ---
FINAL REPORT CLINICAL HISTORY: Lt knee pain COMPARISON: 01/27/2022 FINDINGS: LEFT KNEE 3 views of the left knee were obtained. There is no acute fracture or dislocation. Visualized joint spaces are normally aligned. Soft tissues are unremarkable. IMPRESSION: No acute bony abnormality. Reviewed, Interpreted and Dictated by Stew Marrufo MD Transcribed by Jennifer Strong Authenticated and [facility]
== END ==
PROVIDERS: PCP Nurse Practitioner Family; Visit Provider Orthopaedic Surgery
DX: M25.562 Pain in left knee (principal)
CPT/HCPCS: 73562

== ENCOUNTER → 2023-02-09 12:11 | Outpatient (CLI) | payer MEDICARE, OTHER, SELFPAY ==
--- NOTE | 2023-02-09 12:12 | CT_ITS ---
FINAL REPORT TECHNIQUE: Axial images were obtained from the lung apex to the mid abdomen by computed tomography. Coronal and sagittal reformatted images were obtained. This study was performed with techniques to keep radiation doses as low as reasonably achievable, (ALARA). Individualized dose reduction techniques using automated exposure control or adjustment of mA and/or kV according to the patient's size were employed. CLINICAL HISTORY: Lung nodule 3-month follow-up COMPARISON: 11/03/2022 FINDINGS: There is no axillary adenopathy. There is no hilar or mediastinal adenopathy. Heart size is normal. There is no pericardial or pleural effusion. There is a probable cyst in the left kidney measuring 2.7 cm in size. Bilateral scarring is present in the lung almendarez. There has been interval improvement in the posterior left upper lobe nodule seen on the prior CT. This nodule now measures 3 mm, was 7 mm in October. This is best seen on image #40. There are multiple other less than 5 mm bilateral pleural nodules present, some are stable and others are improved when compared to the prior exam. No new mass or nodule is identified. IMPRESSION: Interval improvement in the posterior left upper lobe nodule, now 3 mm in size, was 7 mm in size in October. Multiple other less than 5 mm bilateral pleural nodules, some are stable, others improved. These nodules are likely inflammatory, and may represent mycobacterial or fungal infection. Reviewed, Interpreted and Dictated by Darrel Day III, MD Transcribed by Jennifer Strong Authenticated and [facility]
== END ==
PROVIDERS: PCP Nurse Practitioner Family; Visit Provider Internal Medicine Pulmonary Disease
DX: R91.8 Other nonspecific abnormal finding of lung field (principal)
CPT/HCPCS: 71250

== ENCOUNTER 2023-07-25 10:02 | Outpatient (CLI) | payer MEDICARE, OTHER, SELFPAY ==
--- NOTE | 2023-07-25 10:07 | XR_ITS ---
FINAL REPORT CLINICAL HISTORY: Right hip pain, kicked by a horse 3 days ago, patient also states he had an injury to left leg previously and he said the right one has been hurting more since he has been favoring left COMPARISON: None FINDINGS: An AP view of the pelvis and a frog leg views of the right hip were obtained. There is no prior exam for comparison. There is no acute fracture or dislocation. Joint space is preserved. Remaining osseous pelvis is within normal limits. Mild vascular calcifications are present. IMPRESSION: No acute osseous abnormality of the right hip. Reviewed, Interpreted and Dictated by Darrel Day III, MD Transcribed by Jennifer Strong Authenticated and [facility]
--- NOTE | 2023-07-25 10:07 | XR_ITS ---
FINAL REPORT TECHNIQUE: 4 views right femur CLINICAL HISTORY: injury to right thigh, kicked by a horse 3 days ago COMPARISON: None FINDINGS: RIGHT FEMUR: No acute fracture or dislocation is seen on this examination. Mild vascular calcifications are present. No associated soft tissue mass is present. IMPRESSION: No acute bony abnormality of the right femur. Reviewed, Interpreted and Dictated by Darrel Day III, MD Transcribed by Jennifer Strong Authenticated and [facility]
--- NOTE | 2023-07-25 10:07 | XR_ITS ---
FINAL REPORT CLINICAL HISTORY: Dorsalgia lumbar spine COMPARISON: None FINDINGS: AP and lateral views of the lumbar spine were obtained. There is no prior exam for comparison. There is no acute fracture or malalignment. Vertebral body height is preserved. Mild and moderate degenerative change is present. There is facet osteoarthropathy present in the lower lumbar spine. No acute paraspinal abnormality. IMPRESSION: No acute osseous abnormality of the lumbar spine. Mild and moderate degenerative changes present as described. Reviewed, Interpreted and Dictated by Darrel Day III, MD Transcribed by Jennifer Strong Authenticated and . [facility]
== END 2023-07-25 23:59 ==
LOC: RAD 10:04
PROVIDERS: PCP Nurse Practitioner Family; Visit Provider Nurse Practitioner Family
DX: M25.551 Pain in right hip (principal); M54.50 Low back pain, unspecified; S79.921A Unspecified injury of right thigh, initial encounter
CPT/HCPCS: 72100; 73502; 73552

== ENCOUNTER 2023-08-23 13:10 | Outpatient (CLI) | payer MEDICARE, MEDICAID, SELFPAY ==
--- NOTE | 2023-08-23 13:10 | MR_ITS ---
FINAL REPORT CLINICAL HISTORY: Lower back pain FINDINGS: Multiplanar MR imaging of the lumbar spine was performed without contrast. On the sagittal T2-weighted images, there is abnormal decreased signal throughout the lumbar discs. The vertebrae are of normal height. The vertebral alignment is normal. L1-2: There is no significant canal stenosis or neural foraminal narrowing. L2-3: There is no significant canal stenosis or neural foraminal narrowing. L3-4: Mild diffuse disc bulge is present. There is mild facet hypertrophy with mild bilateral neural foraminal narrowing. L4-5: Mild diffuse disc bulge is present. There is mild facet hypertrophy with mild bilateral neural foraminal narrowing. L5-S1: Mild diffuse disc bulge is present. There is bilateral facet hypertrophy. IMPRESSION: Multilevel degenerative disc disease. Reviewed, Interpreted and Dictated by Stew Marrufo MD Transcribed by Maryam Mahoney Authenticated and [facility]
--- NOTE | 2023-08-23 14:26 | CT_ITS ---
FINAL REPORT TECHNIQUE: Axial images were obtained from the lung apex to the mid abdomen by computed tomography. Coronal reformatted images were obtained. This study was performed with techniques to keep radiation doses as low as reasonably achievable, (ALARA). Individualized dose reduction techniques using automated exposure control or adjustment of mA and/or kV according to the patient''s size were employed. CLINICAL HISTORY: 6 mth F/U posterior left upper lobe nodule COMPARISON: 02/09/2023 FINDINGS: There is no axillary adenopathy. There are multiple small mediastinal lymph nodes, similar in appearance to the prior study. Heart size is normal. There is no pericardial or pleural effusion. The previously noted nodule in the posterior left upper lobe is similar. However, there is a new nodular airspace opacity in the anterior right lower lobe well-seen on images 124 through 139 of series 3. These are favored to be inflammatory. There is a small nodule in the anterior left lower lobe measuring 6 mm best seen on image 208 of series 3, stable from prior. IMPRESSION: Stable left upper lobe and left lower lobe nodules. New airspace opacity anterior right lower lobe concerning for acute pneumonia. Recommend follow-up in 4 to 6 weeks to ensure resolution. Reviewed, Interpreted and Dictated by Stew Marrufo MD Transcribed by Jyothi Johnston Authenticated and [facility]
== END 2023-08-23 23:59 | disposition home or self-care (01) ==
LOC: RAD 13:10
PROVIDERS: PCP Nurse Practitioner Family; Visit Provider Internal Medicine Pulmonary Disease
DX: M54.42 Lumbago with sciatica, left side; M54.41 Lumbago with sciatica, right side; G89.29 Other chronic pain; R91.8 Other nonspecific abnormal finding of lung field
CPT/HCPCS: 71250; 72148; 76376

== ENCOUNTER 2023-08-31 12:07 | Outpatient (CLI) | payer MEDICARE, MEDICAID, SELFPAY ==
[2023-08-31 13:07] LABS: Chloride 109 mmol/L (98-107); Potassium 3.6 mmoL/L (3.5-5.1); Sodium 143 mmol/L (136-145)
[2023-08-31 13:10] LABS: Alanine Aminotransferase 18 U/L (12-78); Albumin Level 3.8 g/dl (3.5-5.0); Albumin/Globulin Ratio 1.7 (1.1-1.8); Alkaline Phosphatase 77 U/L (38-126); Anion Gap 7.6 mEq/L (5-15); Aspartate Amino Transferase 28 U/L (17-59); Bilirubin,Total 0.6 mg/dl (0.2-1.3); Blood Urea Nitrogen 10 mg/dl (9-20); Calcium 9.7 mg/dl (8.4-10.2); Carbon Dioxide 30 mmol/L (22.0-30.0); Estimated Glomerular Filt Rate 84 ml/min (>60); GFR (African American) 102 ML/MIN (>60); Globulin 2.2 g/dL (1.3-3.2); Glucose 97 mg/dl (74-100)
[2023-08-31 14:33] LABS: C-Reactive Protein 4.2 mg/L (0-4)
== END 2023-08-31 23:59 | disposition home or self-care (01) ==
LOC: LAB 12:09
PROVIDERS: PCP Nurse Practitioner Family; Visit Provider Internal Medicine Pulmonary Disease
DX: R06.09 Other forms of dyspnea (principal); J84.9 Interstitial pulmonary disease, unspecified; F17.210 Nicotine dependence, cigarettes, uncomplicated
CPT/HCPCS: 36415; 80053; 86140

== ENCOUNTER 2023-11-30 15:08 | Outpatient (CLI) | payer MEDICARE, MEDICAID, SELFPAY ==
--- NOTE | 2023-11-30 15:11 | CT_ITS ---
FINAL REPORT CLINICAL HISTORY: Lung nodule 3-month follow-up COMPARISON: 08/23/2023 FINDINGS: CT CHEST without contrast TECHNIQUE: Axial CT without contrast This study was performed with techniques to keep radiation doses as low as reasonably achievable, (ALARA). Individualized dose reduction techniques using automated exposure control or adjustment of mA and/or kV according to the patient's size were employed. Biapical peripheral nodularity is stable compared to the previous study. There is a clustered nodularity also noted within the superior segment of the right lower lobe which is improved. Airspace disease in the superior segment of the right lower lobe is also improved. However, there is a new focus of consolidation in the anterior right lower lobe lung base which is compatible with pneumonia. There is minimal peripheral nodularity in the left lower lobe which has increased. There is no cavitation. No pleural or pericardial effusion is seen . No adenopathy or mass lesion is present . IMPRESSION: Overall mixed appearance with majority of the foci stable, with a few new sites of presumed disease and other sites improved suggesting atypical pneumonia. Reviewed, Interpreted and Dictated by Pola Kennedy MD Transcribed by Jyothi Johnston Authenticated and [facility]
== END 2023-11-30 23:59 | disposition home or self-care (01) ==
LOC: RAD 15:09
PROVIDERS: PCP Nurse Practitioner Family; Visit Provider Internal Medicine Pulmonary Disease
DX: R91.8 Other nonspecific abnormal finding of lung field (principal)
CPT/HCPCS: 71250

== ENCOUNTER 2023-12-06 14:12 | Outpatient (CLI) | payer MEDICARE, MEDICAID, SELFPAY ==
[2023-12-06 14:49] LABS: Basophils # 0.1 K/mm3 (0-0.2); Basophils % 0.7 % (0.1-2.0); Eosinophils # 0.2 K/mm3 (0.0-0.4); Eosinophils % 2.3 % (0.1-12.0); Hematocrit 43.9 % (42.0-52.0); Hemoglobin 14.4 g/dL (14.1-18.0); Lymphocytes % 23.6 % (10-50); Mean Corpuscular HGB Conc 32.8 g/dL (31.8-35.4); Mean Corpuscular Hemoglobin 31.6 pg (27.0-31.2); Mean Corpuscular Volume 96.5 fl (80-94); Mean Platelet Volume 8.7 fl (7.4-10.4); Monocytes # 0.5 K/mm3 (0.1-1.0); Monocytes % 5.6 % (1.7-9.3); Neutrophils # 5.8 K/mm3 (1.8-7.8); Neutrophils % 67.8 % (37.0-80.0); Platelet Count 203 K/mm3 (142-424); Red Blood Count 4.56 M/mm3 (4.60-6.20); Red Cell Distribution Width 14.6 % (11.5-17.5); White Blood Count 8.6 K/mm3 (4.8-10.8)
[2023-12-06 22:54] LABS: Albumin Level 3.8 g/dl (3.5-5.0); Chloride 110 mmol/L (98-107); Potassium 3.1 mmoL/L (3.5-5.1); Sodium 142 mmol/L (136-145)
[2023-12-06 22:57] LABS: Alanine Aminotransferase 18 U/L (12-78); Albumin/Globulin Ratio 1.7 (1.1-1.8); Alkaline Phosphatase 71 U/L (38-126); Anion Gap 6.1 mEq/L (5-15); Aspartate Amino Transferase 30 U/L (17-59); Bilirubin,Total 0.5 mg/dl (0.2-1.3); Blood Urea Nitrogen 13 mg/dl (9-20); Carbon Dioxide 29 mmol/L (22.0-30.0); Estimated Glomerular Filt Rate 84 ml/min (>60); GFR (African American) 102 ML/MIN (>60); Globulin 2.3 g/dL (1.3-3.2); Total Protein,Serum 6.1 g/dl (6.3-8.2)
[2023-12-06 22:58] LABS: Calcium 9.2 mg/dl (8.4-10.2); Glucose 72 mg/dl (74-100)
[2023-12-06 23:03] LABS: C-Reactive Protein 0.9 mg/L (0-4)
[2023-12-11 12:01] LABS: Aspergillus Antigen, BAL/Serum 0.03 Index (0.00-0.49)
[2023-12-25 15:40] LABS: PDF: SCANNED IMAGE
== END 2023-12-06 23:59 | disposition home or self-care (01) ==
LOC: LAB 14:13
PROVIDERS: PCP Nurse Practitioner Family; Visit Provider Internal Medicine Pulmonary Disease
DX: J45.909 Unspecified asthma, uncomplicated (principal); T37.8X5A Adverse effect of other specified systemic anti-infectives and antiparasitics, initial encounter; R06.09 Other forms of dyspnea; B44.9 Aspergillosis, unspecified; J84.9 Interstitial pulmonary disease, unspecified; F17.210 Nicotine dependence, cigarettes, uncomplicated
CPT/HCPCS: 36415; 80053; 80299; 85025; 86140; 87305

== ENCOUNTER 2024-02-19 16:24 | Outpatient (CLI) | payer MEDICARE, MEDICAID, SELFPAY ==
[2024-02-19 17:12] LABS: Chol/HDL Ratio 3.9 (1-3.5); Cholesterol 185 mg/dl (140-200); HDL Cholesterol 48 mg/dl (40-60); Triglycerides 125 mg/dl (30-150); VLDL Cholesterol 25 mg/dL (0-40)
[2024-02-19 17:25] LABS: Direct LDL Cholesterol 104.35 mg/dL (100-129)
[2024-02-20 03:33] LABS: Thyroid Stimulating Hormone 0.89 uIU/mL (0.465-4.68)
[2024-02-21 08:35] LABS: Triiodothyronine (T3) Free 2.9 pg/mL (2.0-4.4)
== END 2024-02-19 23:59 | disposition home or self-care (01) ==
LOC: LAB.DROPOF 16:25
PROVIDERS: PCP Nurse Practitioner Family; Visit Provider Nurse Practitioner Family
DX: E03.9 Hypothyroidism, unspecified (principal)
CPT/HCPCS: 80061; 84443; 84481

== ENCOUNTER 2024-05-15 15:04 | Outpatient (CLI) | payer MEDICARE, MEDICAID, SELFPAY ==
[2024-05-15 17:54] LABS: Coronavirus 19, PCR Not Detected (NotDetected); Human Rhinovirus Not Detected (NotDetected); Influenza A, PCR Not Detected (NotDetected); Influenza B, PCR Not Detected (NotDetected); Respiratory Syncytial Virus Not Detected (NotDetected)
== END 2024-05-15 23:59 | disposition home or self-care (01) ==
LOC: LAB.DROPOF 05-17 09:55
PROVIDERS: PCP Nurse Practitioner Family; Visit Provider Nurse Practitioner Family
DX: R05.1 Acute cough (principal); J98.8 Other specified respiratory disorders; R06.00 Dyspnea, unspecified
CPT/HCPCS: 87631

== ENCOUNTER 2024-09-09 13:37 | Outpatient (POV) | payer MEDICARE, MEDICAID, SELFPAY ==
[2024-09-09 14:03] VITALS: BP 146/88; PULSE 66; RESP 18; O2SAT 100; BMI 21.9
--- NOTE | 2024-09-09 14:19 | A.OFFVIS_ITS ---
HPI Data of Consult Patient: new to practice Consult date: 09/09/24 Requesting Physician: Hazel Camacho APRN Primary Care Provider: Carol Bahena APRN Consult Narrative Reason for consult: Low back pain, left hip pain History of present illness: Mr. James is a 69 year old male who presents today as a new patient. He is a referral from Emely Bahena's office. Today he rates his pain a 2 however does state with certain movements or prolonged positioning that it does go to a 5 or more. Patient does describe his pain as a sharp numbness that does interfere with his ability perform activities of daily living such as cooking and cleaning. Patient does state that he has had chronic low back pain since around the age of 17 or 18. He states at that time he was helping his father haul water and slipped causing him to fall and have awkward positioning. Patient states from then on he is always had the low back issues with occasional flareups. He does state over the last month he has had worsening pain that does seem to really bother his left hip and that is why it is the worst. He states that he notices it when he goes to sleep because it is affecting him getting a good nights rest. He states that he often has to kind of laying in a position and that in the morning his pain is much worse and does seem to get a little bit better with increased activity. Patient does also state that about a year and a half ago he was kicked by a horse in that left knee and that he walked on it for about 2 months before realizing that he had fractured that knee. He questions whether or not this may be playing a role as well. Patient has tried [id number]-[id number] Tylenol along with prescription Lyrica. He states he has not really gotten into heat or ice. 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 Patient denies any prior injections or surgery history. He is interested in any options we may be able to provide. His Prakash has been reviewed and is appropriate. CC: Hazel Camacho APRN [facility] Disclaimer: The information contained in this section may have been updated after the patient was seen, as this information can be updated by other users. Medical History (Updated 09/09/24 @ 14:26 by Hazel Camacho APRN) Injury of right thigh Bilateral otitis media Acute pain of right shoulder Abdominal pain Fall Encounter to obtain excuse from work Fall due to ice or snow Low back strain Respiratory infection Oral thrush Adverse effect of itraconazole COPD mixed type Aspergillosis, with pneumonia Smoking greater than 30 pack years Pulmonary emphysema Dyspnea on exertion Multiple pulmonary nodules Hypothyroid Seasonal allergies Insomnia Surgical History History of tooth extraction History of arthroscopic knee surgery History of tonsillectomy and adenoidectomy Family History Other Heart disease Hypertension Social History Smoking Status: Current every day smoker tobacco type: cigarettes alcohol intake: never substance use type: denies use current occupational status: employed Travel in the last 8 weeks?: None housing: house Review of Systems Review of Systems Review of systems:: pertinent systems reviewed and negative unless documented below Review of systems (narrative): Review of Systems: General: No recent weight changes, no fever, no sleep disturbances Respiratory: No cough, no shortness of air, no recurring pulmonary infections Cardiovascular/peripheral vascular: No chest pain, no palpitations, no edema, no shortness of breath Gastrointestinal: No new onset incontinence, normal bowel movements reported Genitourinary: No new onset incontinence Musculoskeletal: Back pain, left hip pain Psychiatric: [Normal mood/affect] Neurological: [Denies weakness in extremities], [denies balance issues] Meds Home Medications and Allergies Home Medications ?Medication ?Instructions ?Recorded ?Confirmed ?Type celecoxib 200 mg capsule (Celebrex) 200 mg PO DAILY #90 caps 02/19/24 09/09/24 Rx ibuprofen 800 mg tablet 800 mg PO Q8H PRN pain #90 tabs 08/05/24 09/09/24 Rx levothyroxine 88 mcg tablet 88 mcg PO DAILY hypothyroidism #90 08/05/24 09/09/24 Rx tabs sertraline 50 mg tablet 50 mg PO DAILY Anxiety #90 tabs 08/05/24 09/09/24 Rx trazodone 150 mg tablet 150 mg PO DAILY Insomnia #90 tabs 08/05/24 09/09/24 Rx tiotropium 2.5 mcg-olodaterol 2.5 2 inh inhalation DAILY 08/21/24 09/09/24 History mcg/actuation mist for inhalation (Stiolto Respimat) varenicline tartrate 1 mg tablet 1 mg PO BID 08/21/24 09/09/24 History lisinopril 40 mg tablet 40 mg PO DAILY #90 tabs 08/30/24 09/09/24 Rx pregabalin 75 mg capsule 75 mg PO BID #60 caps 09/06/24 09/09/24 Rx New Prescriptions to Start Prescriptions: Allergies Allergy/AdvReac Type Severity Reaction Status Date / Time irbesartan Allergy Intermediate lip and Verified 08/30/24 14:08 nasal edema Objective Vital signs: Pulse Resp BP Pulse Ox O2 Del Method 66 18 146/88 H 100 Room Air 09/09/24 14:03 09/09/24 14:03 09/09/24 14:03 09/09/24 14:03 09/09/24 14:03 Narrative: Physical Exam: General: Alert and oriented x3, no acute distress, pleasant and cooperative Lungs: Respirations even and unlabored, symmetrical chest expansion Eyes: PERRL Musculoskeletal: Flexion and extension of lumbar [spine] somewhat guarded secondary to pain, [antalgic gait noted] extreme point tenderness along left greater trochanteric bursa Neurological: Speech clear, no gross sensory deficit Additional findings Additional findings: FINDINGS: Multiplanar MR imaging of the lumbar spine was performed without contrast. On the sagittal T2-weighted images, there is abnormal decreased signal throughout the lumbar discs. The vertebrae are of normal height. The vertebral alignment is normal. L1-2: There is no significant canal stenosis or neural foraminal narrowing. L2-3: There is no significant canal stenosis or neural foraminal narrowing. L3-4: Mild diffuse disc bulge is present. There is mild facet hypertrophy with mild bilateral neural foraminal narrowing. L4-5: Mild diffuse disc bulge is present. There is mild facet hypertrophy with mild bilateral neural foraminal narrowing. L5-S1: Mild diffuse disc bulge is present. There is bilateral facet hypertrophy. IMPRESSION: Multilevel degenerative disc disease. Reviewed, Interpreted and Dictated by Stew Marrufo MD Transcribed by Maryam Mahoney Authenticated and [facility] Assessment and Plan *Assessment and plan (1) Greater trochanteric bursitis of left hip: Status: Acute Category: Medical Code(s): M70.62 - Trochanteric bursitis, left hip (2) Degenerative disc disease: Status: Acute Category: Medical (3) Lumbar facet arthropathy: Status: Acute Category: Medical Code(s): M47.816 - Spondylosis without myelopathy or radiculopathy, lumbar region Plan Patient is experiencing significant pain in his left hand up with extreme point tenderness along the left greater trochanteric bursa. I did discuss with the patient that I do believe he would benefit from a bursa injection. Risk and benefits were discussed with the patient and he would like to proceed forward with this plan of care. Patient has had chronic low back and hip pain for longer than 6 months however over the last month it has became increasingly unbearable and affecting his ability perform ADLs. Patient has tried oral medications and at home stretching exercise for longer than 12 weeks. We will submit to insurance for the left bursa injection under fluoroscopy. I will also order the patient a compounded cream. Patient has been instructed to contact the clinic with any concerns before the next appointment. Dr. Sun has reviewed this note and agrees with this plan of care. This note was dictated using voice recognition software and make contain errors or omissions. All injections are used with Lidocaine, Bupivacaine and dexamethasone. Occasionally urine drug screen is needed to verify patient's compliance with our office pain contract. This is ordered based off specific treatments related to chronic pain with the potential to abuse certain medications.
== END 2024-09-09 23:59 | disposition home or self-care (01) ==
LOC: SC.PAIN 13:39
PROVIDERS: PCP Nurse Practitioner Family; Visit Provider Nurse Practitioner Family
DX: M70.62 Trochanteric bursitis, left hip (principal); M47.816 Spondylosis without myelopathy or radiculopathy, lumbar region; Z73.89 Other problems related to life management difficulty; F17.210 Nicotine dependence, cigarettes, uncomplicated
CPT/HCPCS: 99202; 99212; G0463

== ENCOUNTER 2024-10-01 14:26 | Day surgery (SDC) | payer MEDICARE, SELFPAY ==
[2024-10-01 14:37] VITALS: BP 174/96; PULSE 62; RESP 16; TEMP 36.1; O2SAT 98; BMI 21.7
--- NOTE | 2024-10-01 15:09 | P.PCN_ITS ---
Procedure Date: 10/01/24 Time: 15:00 Anesthesiologist:: Hipolito Storey CRNA Complications:: None Pre-procedure Diagnosis:: Left trochanteric bursitis Post-procedure Diagnosis:: Same Indications for Procedure:: Patient is a very pleasant 69-year-old male who comes our clinic today for left trochanteric bursa injection of cortisone local anesthetic. He has extreme point tenderness over the left trochanteric bursa area. He describes pain as constant, dull, aching. He rates his pain 7/10. Procedure Details:: Procedure:Left trochanteric bursa injection under fluoroscopy We then moved to the left trochanteric bursa.~ C-arm fluoroscopy was used to view the left greater trochanter.~ The skin and subcutaneous tissues overlying the left greater trochanter were anesthetized using lidocaine, 1.5% and a 25- gauge needle.~ After this, a 22-gauge spinal needle was inserted and advanced until it contacted the left greater trochanter.~ Dye was injected and good spread was seen throughout the left trochanteric bursa. After this, approximately 5 mL of bupivacaine, 0.25% and Depo-Medrol, 40 mg was incrementally injected into the left trochanteric bursa.~ The patient tolerated the procedure well with no complications. Plan and Disposition:: Patient was discharged without incident.
[2024-10-01] MEDS: LIDOCAINE 1% 5ML PF VIAL 5 ML (15:27)
[2024-10-01] MEDS: BUPIVACAINE 0.25% 10ML INJ 25 MG IJ (15:28)
[2024-10-01] MEDS: DEXAMETHASONE 10MG/ML 1ML VIAL 10 MG (15:28)
[2024-10-01 15:29] VITALS: BP 162/101; BP 163/86; PULSE 59; PULSE 60; RESP 16; RESP 18; O2SAT 99
--- NOTE | 2024-10-01 15:29 | PC.NURSE ---
PT STARTED NEW BP MED. PT INSTRUCTED TO CALL PCP IF SYMPTOMATIC.
[2024-10-01 15:34] VITALS: BP 163/86; PULSE 59; RESP 18; O2SAT 99
== END 2024-10-01 15:29 | disposition home or self-care (01) ==
PROVIDERS: PCP Nurse Practitioner Family; Visit Provider Nurse Anesthetist, Certified Registered
DX: M70.62 Trochanteric bursitis, left hip (principal)
CPT/HCPCS: 20610; 77002; J1100

== ENCOUNTER 2024-10-21 10:40 | Outpatient (POV) | payer MEDICARE, SELFPAY ==
--- NOTE | 2024-10-21 11:42 | A.OFFVIS_ITS ---
[facility] Disclaimer: The information contained in this section may have been updated after the patient was seen, as this information can be updated by other users. Medical History (Updated 10/21/24 @ 11:46 by Hazel Camacho APRN) Fracture of femoral condyle, left, closed Injury of right thigh Bilateral otitis media Acute pain of right shoulder Abdominal pain Fall Encounter to obtain excuse from work Fall due to ice or snow Low back strain Respiratory infection Oral thrush Adverse effect of itraconazole COPD mixed type Aspergillosis, with pneumonia Smoking greater than 30 pack years Pulmonary emphysema Dyspnea on exertion Multiple pulmonary nodules Hypothyroid Seasonal allergies Insomnia Surgical History History of tooth extraction History of arthroscopic knee surgery History of tonsillectomy and adenoidectomy Family History Other Heart disease Hypertension Social History Smoking Status: Current every day smoker tobacco type: cigarettes alcohol intake: never substance use type: denies use current occupational status: employed Travel in the last 8 weeks?: None housing: house PM Subjective & Objective Subjective Subjective:: Patient is a pleasant 69-year-old male who presents today for follow-up of left bursa injection. Today he rates his pain a 6 out of 10. He denies any new falls or injuries. Patient does state that he really did not notice any additional improvement following this injection. He is still having a chronic achy sensation that is along the low back that was primarily the left side however feels like it is now more present on the right as well. He does also make mention that he does feel like when the pain does increase he is having m ore numbness and tingling from his left knee down to his foot. Patient states that he does have difficulty walking due to this pain and feels like it is a fairly constant pressure sensation when he is up moving. He does state it is interfering with his ability perform activities of daily living such as cooking and cleaning. Patient states that he would like to be doing more especially with his granddaughter however it is very limited. Patient does use [id number] Tylenol along with Lyrica from an outside provider. Patient at our last visit was ordered compounded cream. He states he did not end up getting this. His Prakash has been reviewed and is appropriate. Review of Systems: General: No recent weight changes, no fever, no sleep disturbances Respiratory: No cough, no shortness of air, no recurring pulmonary infections Cardiovascular/peripheral vascular: No chest pain, no palpitations, no edema, no shortness of breath Gastrointestinal: No new onset incontinence, normal bowel movements reported Genitourinary: No new onset incontinence Musculoskeletal: Low back pain, left leg numbness tingling Psychiatric: [Normal mood/affect] Neurological: [Denies weakness in extremities], [denies balance issues] Pain at rest (0-10 scale): 6 Objective Objective:: Physical Exam: General: Alert and oriented x3, no acute distress, pleasant and cooperative Lungs: Respirations even and unlabored, symmetrical chest expansion Eyes: PERRL Musculoskeletal: Flexion and extension of lumbar [spine] somewhat guarded secondary to pain, [antalgic gait noted] positive left leg raise Neurological: Speech clear, no gross sensory deficit Has patient had previous pain injection?: Yes Percent improvement in pain since last injection: Minimal Conservative treatment options previously tried: Home exercise plan Length of treatment: Longer than 12 weeks Meds Home Medications and Allergies Home Medications ?Medication ?Instructions ?Recorded ?Confirmed ?Type celecoxib 200 mg capsule (Celebrex) 200 mg PO DAILY #9 0 caps 02/19/24 10/17/24 Rx levothyroxine 88 mcg tablet 88 mcg PO DAILY hypothyroi dism #90 08/05/24 10/17/24 Rx tabs sertraline 50 mg tablet 50 mg PO DAILY Anxiety #90 t abs 08/05/24 10/17/24 Rx trazodone 150 mg tablet 150 mg PO DAILY Insomnia #90 tabs 08/05/24 10/17/24 Rx pregabalin 75 mg capsule 75 mg PO BID #60 caps 10/17/24 Rx varenicline tartrate 1 mg tablet 1 mg PO BID #56 tabs 09/11/24 10/17/24 Rx tiotropium 2.5 mcg-olodaterol 2.5 See Rx Instructions .Route 09/16/24 10/17/24 Rx mcg/actuation mist for inhalation .COMPLEX #12 grams (Stiolto Respimat) amlodipine 10 mg tablet 10 mg PO DAILY 10/17/2410/06 History New Prescriptions to Start Prescriptions: Allergies Allergy/AdvReac Type Severity Reaction Status Date / Time lisinopril Allergy Severe lip edema Verified 10/17/24 15:38 irbesartan Allergy Intermediate lip and Verified 10/17/24 15:38 nasal edema Assessment and Plan *Assessment and plan (1) Degenerative disc disease: Status: Acute Category: Medical (2) Lumbar facet arthropathy: Status: Acute Category: Medical Code(s): M47.816 - Spondylosis without myelopathy or radiculopathy, lumbar region (3) Lumbar radiculopathy: Status: Acute Category: Medical Code(s): M54.16 - Radiculopathy, lumbar region Plan Patient is experiencing worsening pain in his low back with numbness and tingling into his left lower extremity. Patient did have limited range of mo tion of his lumbar spine with a positive left leg raise. I did discuss with patient that I do believe they would benefit from a lumbar epidural steroid injection. Risk and benefits were discussed with patient and the patient would like to proceed forward with this plan of care. Patient is not on any blood thinners. Patient has tried and failed conservative therapy including oral medications, heat and ice, topicals and continued at home stretching exercise for longer than 12 weeks. Patient has had chronic back pain for longer than 6 months. Patient has not had any previous epidurals to compare to. Patient is experiencing worsening pain that does radiate down the back of his leg with the numbness and tingling. We did discuss that we will plan on doing the L5-S1 dermatome. We will schedule the patient for an LESI L5-S1 under fluoroscopy. I will also send in a prescription of methocarbamol 750 mg 3 times daily as needed with a 2-week supply. Patient has been instructed to contact the clinic with any concerns before the next appointment. Dr. Sun has reviewed this note and agrees with this plan of care. This note was dictated using voice recognition software and make contain errors or omissions. All injections are used with Lidocaine, Bupivacaine and dexamethasone. Occasionally urine drug screen is needed to verify patient's compliance with our office pain contract. This is ordered based off specific treatments related to chronic pain with the potential to abuse certain medications.
[2024-10-21 12:41] VITALS: BP 120/76; PULSE 80; RESP 18; O2SAT 98; BMI 21.7
== END 2024-10-21 23:59 | disposition home or self-care (01) ==
PROVIDERS: PCP Nurse Practitioner Family; Visit Provider Nurse Practitioner Family
DX: M51.16 Intervertebral disc disorders with radiculopathy, lumbar region (principal); Z79.1 Long term (current) use of non-steroidal anti-inflammatories (NSAID); Z79.899 Other long term (current) drug therapy
CPT/HCPCS: 99212; G0463

== ENCOUNTER 2024-11-12 09:25 | Day surgery (SDC) | payer MEDICARE, SELFPAY ==
[2024-11-12 09:34] VITALS: BP 137/99; PULSE 70; RESP 18; O2SAT 97; BMI 21.7
[2024-11-12 09:59] VITALS: BP 128/61; PULSE 66; RESP 18; O2SAT 96
[2024-11-12] MEDS: DEXAMETHASONE 10MG/ML 1ML VIAL 10 MG (09:59)
[2024-11-12 10:02] VITALS: BP 128/61; PULSE 66; RESP 18; O2SAT 96
[2024-11-12 10:13] VITALS: BP 129/69; PULSE 71; RESP 18; O2SAT 98
[2024-11-12] MEDS: IOPAMIDOL-200 (41%);10ML VIAL 3 ML IV (10:15)
--- NOTE | 2024-11-12 10:16 | EXP.PAIN.PRO ---
Procedure Date: 11/12/24 Time: 10:00 Anesthesiologist:: Hipolito Storey CRNA Complications:: None Pre-procedure Diagnosis:: Degenerative disc lumbar spine multilevels. Lumbar radiculopathy. Post-procedure Diagnosis:: Same Indications for Procedure:: Patient is a very pleasant 69-year-old male who comes our clinic today for lumbar epidural steroid injection at L5-S1 level. Patient describes low lumbar back pain as well as bilateral hip and leg radicular symptoms. He rates his pain 7/10. Procedure Details:: Procedure: Lumbar epidural steroid injection under fluoroscopy Informed consent was obtained and the risks and benefits of the procedure were explained to the patient. The patient was taken to the procedure room and noninvasive monitors placed, including noninvasive blood pressure cuff and pulse oximeter. The back was viewed using C-arm Fluoroscopy and prepped using Chloraprep as a cleansing solution and the L5-S1 interspace was palpated. Skin and subcutaneous tissues were anesthetized using lidocaine 1.5% and a 25-gauge needle. After this, an 18-gauge Touhy epidural needle was placed into the L5-S1 interspace and advanced using fluoroscopic guidance and loss of resistance to air until the epidural space was encountered. After confirmation of needle placement in the epidural space, with dye, a solution containing normal saline, 3 mL and dexamethasone 10 mg were incrementally injected into the lumbar epidural space. The patient tolerated the procedure well with no complications. The patient was observed in the Pain Clinic and then discharged home neurologically intact. Plan and Disposition:: Patient was discharged without incident.
== END 2024-11-12 10:13 | disposition home or self-care (01) ==
PROVIDERS: PCP Nurse Practitioner Family; Visit Provider Nurse Anesthetist, Certified Registered
DX: M51.16 Intervertebral disc disorders with radiculopathy, lumbar region (principal); J44.89 Other specified chronic obstructive pulmonary disease; E03.9 Hypothyroidism, unspecified; J43.8 Other emphysema; F17.210 Nicotine dependence, cigarettes, uncomplicated; Z88.8 Allergy status to other drugs, medicaments and biological substances; Z79.890 Hormone replacement therapy; Z79.899 Other long term (current) drug therapy
CPT/HCPCS: 64483; J1100; Q9966

== ENCOUNTER 2024-11-28 13:56 | Outpatient (POV) | payer MEDICARE, SELFPAY ==
--- NOTE | 2024-11-28 15:05 | EXP.PAIN.SOA ---
[facility] Disclaimer: The information contained in this section may have been updated after the patient was seen, as this information can be updated by other users. Medical History Fracture of femoral condyle, left, closed Injury of right thigh Bilateral otitis media Acute pain of right shoulder Abdominal pain Fall Encounter to obtain excuse from work Fall due to ice or snow Low back strain Respiratory infection Oral thrush Adverse effect of itraconazole COPD mixed type Aspergillosis, with pneumonia Smoking greater than 30 pack years Pulmonary emphysema Dyspnea on exertion Multiple pulmonary nodules Hypothyroid Seasonal allergies Insomnia Surgical History History of tooth extraction History of arthroscopic knee surgery History of tonsillectomy and adenoidectomy Family History Other Heart disease Hypertension Social History Smoking Status: Current every day smoker tobacco type: cigarettes alcohol intake: never substance use type: denies use current occupational status: employed Travel in the last 8 weeks?: None housing: house PM Subjective & Objective Subjective Subjective:: Patient is a pleasant 69-year-old male who presents today for follow-up of his lumbar epidural steroid injection L5-S1 on 11/12/2024. Today he does state that he did have 85% relief however he only felt like it really lasted about 12 to 15 hours. Patient does state that his movements were easier and it was much more functional overall and able to do more during this timeframe. Patient does however state he is back to his baseline and feels like he is still having the chronic pain that does interfere with his ability perform activities of daily living such as cooking and cleaning. He states that he frequently has to stop and take multiple breaks due to the worsening pain. Patient was given a prescription of methocarbamol 750 mg 3 times daily at the last visit however he states he ended up not taking this because he thought he was already on a muscle relaxer. Patient is prescribed pregabalin from an outside provider. Patient is asking if there is something we could prescribe to help with the pain. His Prakash has been reviewed and is appropriate. Review of Systems: General: No recent weight changes, no fever, no sleep disturbances Respiratory: No cough, no shortness of air, no recurring pulmonary infections Cardiovascular/peripheral vascular: No chest pain, no palpitations, no edema, no shortness of breath Gastrointestinal: No new onset incontinence, normal bowel movements reported Genitourinary: No new onset incontinence Musculoskeletal: Low back pain, leg pain Psychiatric: [Normal mood/affect] Neurological: [Denies weakness in extremities], [denies balance issues] Pain at rest (0-10 scale): 5 Objective Objective:: Physical Exam: General: Alert and oriented x3, no acute distress, pleasant and cooperative Lungs: Respirations even and unlabored, symmetrical chest expansion Eyes: PERRL Musculoskeletal: Flexion and extension of lumbar [spine] somewhat guarded secondary to pain, [antalgic gait noted] Neurological: Speech clear, no gross sensory deficit Has patient had previous pain injection?: Yes Percent improvement in pain since last injection: 85% Conservative treatment options previously tried: Home exercise plan Length of treatment: Longer than 12 weeks Meds Home Medications and Allergies Home Medications ?Medication ?Instructions ?Recorded ?Confirmed ?Type celecoxib 200 mg capsule (Celebrex) 200 mg PO DAILY #90 caps 02/19/24 11/12/24 Rx levothyroxine 88 mcg tablet 88 mcg PO DAILY hypothyroidism #90 08/05/24 11/12/24 Rx tabs sertraline 50 mg tablet 50 mg PO DAILY Anxiety #90 tabs 08/05/24 11/12/24 Rx trazodone 150 mg tablet 150 mg PO DAILY Insomnia #90 tabs 08/05/24 11/12/24 Rx pregabalin 75 mg capsule 75 mg PO BID #60 caps 09/06/24 11/12/24 Rx varenicline tartrate 1 mg tablet 1 mg PO BID #56 tabs 09/11/24 11/12/24 Rx tiotropium 2.5 mcg-olodaterol 2.5 See Rx Instructions .Route 09/16/24 11/12/24 Rx mcg/actuation mist for inhalation .COMPLEX #12 grams (Stiolto Respimat) amlodipine 10 mg tablet 10 mg PO DAILY 10/17/24 11/12/24 History methocarbamol 750 mg tablet 750 mg PO TID #42 tabs 10/21/24 11/12/24 Rx New Prescriptions to Start Prescriptions: Allergies Allergy/AdvReac Type Severity Reaction Status Date / Time lisinopril Allergy Severe lip edema Verified 10/17/24 15:38 irbesartan Allergy Intermediate lip and Verified 10/17/24 15:38 nasal edema Assessment and Plan *Assessment and plan (1) Lumbar radiculopathy: Status: Acute Category: Medical Code(s): M54.16 - Radiculopathy, lumbar region (2) Lumbar facet arthropathy: Status: Acute Category: Medical Code(s): M47.816 - Spondylosis without myelopathy or radiculopathy, lumbar region (3) Degenerative disc disease: Status: Acute Category: Medical Plan I did discuss with the patient that I am pleased that he did get significant relief however typically we would love to see more long-term improvement the last at least 3 months. I did discuss with the patient that I do think it would be beneficial for a repeat lumbar epidural at the same location in future to see if it does improve in efficacy. Patient was counseled that we would still have a minimum 3 months between injections. I did certified addiction counselor the patient that I did review over his medication and he is not on any muscle relaxant and that I would recommend him try the methocarbamol 3 times a day and see if this does help with the day-to-day pain. Patient was counseled that we can also change his anti-inflammatory if he would like us to. Patient states he has been on the Celebrex for years. Patient does take 200 mg daily. I did certified addiction counselor him that to discontinue this medication and I will send in a 2-week dose of diclofenac 75 mg twice daily. Patient was counseled to discontinue all other NSAIDs while trying this medication and to take it with food to minimize GI upset. We did also discuss 2 separate the methocarbamol and the diclofenac when starting these medications in order to effectively know if he has a reaction which medication caused it. Patient agrees with this plan of care. Patient will return to clinic in 2 weeks for reevaluation of symptoms and plan of care. Patient has been instructed to contact the clinic with any concerns before the next appointment. Dr. Sun has reviewed this note and agrees with this plan of care. This note was dictated using voice recognition software and make contain errors or omissions. All injections are used with Lidocaine, Bupivacaine and dexamethasone. Occasionally urine drug screen is needed to verify patient's compliance with our office pain contract. This is ordered based off specific treatments related to chronic pain with the potential to abuse certain medications.
[2024-11-28 15:30] VITALS: BP 114/64; PULSE 75; RESP 14; O2SAT 97; BMI 21.7
== END 2024-11-28 23:59 | disposition home or self-care (01) ==
PROVIDERS: PCP Nurse Practitioner Family; Visit Provider Nurse Practitioner Family
DX: M51.16 Intervertebral disc disorders with radiculopathy, lumbar region (principal); M47.816 Spondylosis without myelopathy or radiculopathy, lumbar region; Z79.899 Other long term (current) drug therapy
CPT/HCPCS: 99212; G0463

== ENCOUNTER 2024-12-25 13:10 | Outpatient (POV) | payer MEDICARE, SELFPAY ==
--- NOTE | 2024-12-25 13:45 | EXP.PAIN.SOA ---
[facility] Disclaimer: The information contained in this section may have been updated after the patient was seen, as this information can be updated by other users. Medical History Fracture of femoral condyle, left, closed Injury of right thigh Bilateral otitis media Acute pain of right shoulder Abdominal pain Fall Encounter to obtain excuse from work Fall due to ice or snow Low back strain Respiratory infection Oral thrush Adverse effect of itraconazole COPD mixed type Aspergillosis, with pneumonia Smoking greater than 30 pack years Pulmonary emphysema Dyspnea on exertion Multiple pulmonary nodules Hypothyroid Seasonal allergies Insomnia Surgical History History of tooth extraction History of arthroscopic knee surgery History of tonsillectomy and adenoidectomy Family History Other Heart disease Hypertension Social History Smoking Status: Current every day smoker tobacco type: cigarettes alcohol intake: never substance use type: denies use current occupational status: other Travel in the last 8 weeks?: None housing: house PM Subjective & Objective Subjective Subjective:: Patient is a pleasant 69-year-old male who presents today for follow-up. Patient at our last visit was changed to diclofenac [address] of Celebrex. He states that he did not notice any additional improvement. He states that the Celebrex and the diclofenac seemed about equal. Patient is still having the chronic low back pain that he has tried injections for and did get significant relief however was only very temporary. Patient rates his pain today a 5 out of 10. He is asking if there were any other additional options that we can try. His Prakash has been reviewed and is appropriate. Review of Systems: General: No recent weight changes, no fever, no sleep disturbances Respiratory: No cough, no shortness of air, no recurring pulmonary infections Cardiovascular/peripheral vascular: No chest pain, no palpitations, no edema, no shortness of breath Gastrointestinal: No new onset incontinence, normal bowel movements reported Genitourinary: No new onset incontinence Musculoskeletal: Chronic back pain Psychiatric: [Normal mood/affect] Neurological: [Denies weakness in extremities], [denies balance issues] Pain at rest (0-10 scale): 5 Objective Objective:: Physical Exam: General: Alert and oriented x3, no acute distress, pleasant and cooperative Lungs: Respirations even and unlabored, symmetrical chest expansion Eyes: PERRL Musculoskeletal: Flexion and extension of lumbar [spine] somewhat guarded secondary to pain, [antalgic gait noted] Neurological: Speech clear, no gross sensory deficit Has patient had previous pain injection?: No Conservative treatment options previously tried: Home exercise plan Length of treatment: Longer than 12 weeks Meds Home Medications and Allergies Home Medications ?Medication ?Instructions ?Recorded ?Confirmed ?Type celecoxib 200 mg capsule (Celebrex) 200 mg PO DAILY #90 caps 02/19/24 11/28/24 Rx levothyroxine 88 mcg tablet 88 mcg PO DAILY hypothyroidism #90 08/05/24 11/28/24 Rx tabs sertraline 50 mg tablet 50 mg PO DAILY Anxiety #90 tabs 08/05/24 11/28/24 Rx trazodone 150 mg tablet 150 mg PO DAILY Insomnia #90 tabs 08/05/24 11/28/24 Rx pregabalin 75 mg capsule 75 mg PO BID #60 caps 09/06/24 11/28/24 Rx tiotropium 2.5 mcg-olodaterol 2.5 See Rx Instructions .Route 09/16/24 11/28/24 Rx mcg/actuation mist for inhalation .COMPLEX #12 grams (Stiolto Respimat) amlodipine 10 mg tablet 10 mg PO DAILY 10/17/24 11/28/24 History methocarbamol 750 mg tablet 750 mg PO TID #42 tabs 10/21/24 11/28/24 Rx diclofenac sodium 75 mg 75 mg PO BID #28 tabs 11/28/24 Rx tablet,delayed release varenicline tartrate 1 mg tablet See Rx Instructions .Route 11/29/24 Rx .COMPLEX #56 tabs New Prescriptions to Start Prescriptions: Allergies Allergy/AdvReac Type Severity Reaction Status Date / Time lisinopril Allergy Severe lip edema Verified 10/17/24 15:38 irbesartan Allergy Intermediate lip and Verified 10/17/24 15:38 nasal edema Assessment and Plan *Assessment and plan (1) Lumbar facet arthropathy: Status: Acute Category: Medical Code(s): M47.816 - Spondylosis without myelopathy or radiculopathy, lumbar region (2) Degenerative disc disease: Status: Acute Category: Medical (3) Lumbar radiculopathy: Status: Acute Category: Medical Code(s): M54.16 - Radiculopathy, lumbar region Plan -year-oldI did discuss with the patient in future that he may benefit from an intrathecal pump trial. Risk and benefits were discussed with patient and educational handouts given during today's visit. I did residential youth counselor him that we would have to send him for a psychological evaluation and neurosurgeon referral. Patient acknowledges understanding. I did residential youth counselor him that if between now and our next visit he decides to proceed forward with this option to just call and we can send these. Patient agrees with this plan of care. I will start him on meloxicam 15 mg at bedtime. Patient was counseled to discontinue all other NSAIDs while taking this medication and still take it with food to minimize GI upset. Patient will return to clinic in 1 month for reevaluation of symptoms and plan of care. Patient has been instructed to contact the clinic with any concerns before the next appointment. Dr. Sun has reviewed this note and agrees with this plan of care. This note was dictated using voice recognition software and make contain errors or omissions. All injections are used with Lidocaine, Bupivacaine and dexamethasone. Occasionally urine drug screen is needed to verify patient's compliance with our office pain contract. This is ordered based off specific treatments related to chronic pain with the potential to abuse certain medications.
[2024-12-25 15:03] VITALS: BP 123/76; PULSE 70; RESP 18; O2SAT 96; BMI 21.7
== END 2024-12-25 23:59 | disposition home or self-care (01) ==
PROVIDERS: PCP Nurse Practitioner Family; Visit Provider Nurse Practitioner Family
DX: M47.26 Other spondylosis with radiculopathy, lumbar region (principal); M51.360 Other intervertebral disc degeneration, lumbar region with discogenic back pain only
CPT/HCPCS: 99212; G0463

== ENCOUNTER 2025-01-03 08:42 | Outpatient (CLI) | payer MEDICARE, SELFPAY ==
[2025-01-03 14:12] LABS: Hematocrit 39.8 % (42.0-52.0); Hemoglobin 13.7 g/dL (14.1-18.0); Immature Granulocytes % 0.3 %; Mean Corpuscular HGB Conc 34.4 g/dL (31.8-35.4); Mean Corpuscular Hemoglobin 31.6 pg (27.0-31.2); Mean Corpuscular Volume 91.7 fl (80-94); Nucleated Red Blood Cells % 0 %; Platelet Count 303 K/mm3 (142-424); Red Blood Count 4.34 M/mm3 (4.60-6.20); Red Cell Distribution Width-SD 45.1 fL; White Blood Count 6.4 K/mm3 (4.8-10.8)
[2025-01-03 14:30] LABS: Albumin Level 4.3 g/dl (3.5-5.0); Chloride 107 mmol/L (98-107); Sodium 138 mmol/L (136-145)
[2025-01-03 14:31] LABS: Potassium 3.3 mmoL/L (3.5-5.1)
[2025-01-03 14:33] LABS: Alanine Aminotransferase 21 U/L (12-78); Albumin/Globulin Ratio 2.0 (1.1-1.8); Alkaline Phosphatase 70 U/L (38-126); Anion Gap 8.3 mEq/L (5-15); Aspartate Amino Transferase 31 U/L (17-59); Bilirubin,Total 0.6 mg/dl (0.2-1.3); Blood Urea Nitrogen 8 mg/dl (9-20); Carbon Dioxide 26 mmol/L (22.0-30.0); Creatinine,Serum 0.90 mg/dl (0.66-1.25); Estimated Glomerular Filt Rate 84 ml/min (>60); GFR (African American) 102 ML/MIN (>60); Globulin 2.2 g/dL (1.3-3.2); Total Protein,Serum 6.5 g/dl (6.3-8.2)
[2025-01-03 14:34] LABS: Calcium 9.4 mg/dl (8.4-10.2); Glucose 88 mg/dl (74-100); Uric Acid 6.2 mg/dl (3.5-8.5)
[2025-01-03 14:49] LABS: Free T4 (Free Thyroxine) 2.33 ng/dl (0.78-2.19)
[2025-01-03 14:52] LABS: 25-OH Vitamin D, Total 42.5 ng/mL (30-100)
[2025-01-03 15:05] LABS: Thyroid Stimulating Hormone 0.56 uIU/mL (0.465-4.68)
[2025-01-05 09:10] LABS: RA Latex Turbid. <10.0 IU/mL (<14.0)
== END 2025-01-03 23:59 ==
LOC: LAB.DROPOF 01-06 08:42
PROVIDERS: PCP Nurse Practitioner Family; Visit Provider Nurse Practitioner Family
DX: Z12.5 Encounter for screening for malignant neoplasm of prostate (principal); M25.50 Pain in unspecified joint; I10 Essential (primary) hypertension; E03.9 Hypothyroidism, unspecified
CPT/HCPCS: 80053; 82306; 84439; 84443; 84481; 84550; 85025; 85651; 86038; 86431; G0103

== ENCOUNTER 2025-01-31 12:01 | Outpatient (CLI) | payer MEDICARE, SELFPAY ==
[2025-01-31 17:04] LABS: Hematocrit 38.4 % (42.0-52.0); Hemoglobin 13.1 g/dL (14.1-18.0); Immature Granulocytes % 0.3 %; Mean Corpuscular HGB Conc 34.1 g/dL (31.8-35.4); Mean Corpuscular Hemoglobin 31.6 pg (27.0-31.2); Mean Corpuscular Volume 92.8 fl (80-94); Nucleated Red Blood Cells % 0 %; Platelet Count 317 K/mm3 (142-424); Red Blood Count 4.14 M/mm3 (4.60-6.20); Red Cell Distribution Width-SD 44.6 fL; White Blood Count 6.5 K/mm3 (4.8-10.8)
[2025-01-31 17:20] LABS: Potassium 3.6 mmoL/L (3.5-5.1)
== END 2025-01-31 23:59 ==
LOC: LAB.DROPOF 02-03 10:45
PROVIDERS: Nurse Practitioner Family; PCP Internal Medicine; Visit Provider Internal Medicine
DX: D50.9 Iron deficiency anemia, unspecified (principal); E87.6 Hypokalemia
CPT/HCPCS: 84132; 85025